=== PATIENT | female | born 1975 | race Caucasian/White ===

== ENCOUNTER → 2020-01-22 13:20 | Outpatient (CLI) | payer OTHER, SELFPAY ==
--- NOTE | ~2020-01-22 | MM_ITS ---
EXAMINATION: MM screening [facility] BI w shandra HISTORY: Screening mammogram TECHNIQUE: Craniocaudal and mediolateral oblique 3-D tomosynthesis images were obtained and synthetic 2-D images were generated. CAD analysis was submitted and interpreted. COMPARISON: 12/24/2018, 11/27/2017, 06/29/2015 BREAST PARENCHYMAL COMPOSITION: The breasts are almost entirely fatty. FINDINGS: There is no evidence of suspicious mass, calcification, or architectural distortion to sugg est malignancy in either breast. There has been no suspicious interval change. IMPRESSION: 1. No mammographic evidence of malignancy. 2. Recommend routine screening mammography in one year. BI-RADS Category 1: Negative Reviewed, dictated and finalized at location A.
== END ==
PROVIDERS: Visit Provider Obstetrics & Gynecology
DX: Z12.31 Encounter for screening mammogram for malignant neoplasm of breast (principal)
CPT/HCPCS: 77063; 77067

== ENCOUNTER 2020-12-03 13:33 | Outpatient (CLI) | payer OTHER, SELFPAY ==
[2020-12-03 15:07] LABS: HIV 1/2 Ab P24 Ag Result Negative (Negative)
[2020-12-03 16:40] LABS: Hepatitis B Surface Antigen Negative (Negative)
[2020-12-03 16:45] LABS: Hepatitis B Core IgM Result Negative (Negative)
[2020-12-03 16:58] LABS: Hepatitis C Virus Antibody Negative (Negative)
[2020-12-06 04:20] LABS: Hepatitis Be Antibody Nonreactive
[2020-12-06 08:49] LABS: Rapid Plasma Reagin Non-Reactive (NonReactive)
== END 2020-12-03 13:34 | disposition home or self-care (01) ==
PROVIDERS: PCP Family Medicine Sports Medicine; Visit Provider Nurse Practitioner Obstetrics & Gynecology
DX: A64 Unspecified sexually transmitted disease (principal)
CPT/HCPCS: 36415; 86592; 86695; 86696; 86703; 86705; 86707; 86803; 87340; G0432

== ENCOUNTER → 2021-03-16 10:19 | Outpatient (CLI) | payer OTHER, SELFPAY ==
--- NOTE | ~2021-03-16 | MM_ITS ---
EXAMINATION: MM screening [facility] BI w shandra HISTORY: Screening mammogram TECHNIQUE: Craniocaudal and mediolateral oblique 3-D tomosynthesis images were obtained and synthetic 2-D images were generated. CAD analysis was submitted and interpreted. COMPARISON: 01/22/2020, 12/24/2018, 11/27/2017 bilateral digital screening mammogram examinations BREAST PARENCHYMAL COMPOSITION: The breasts are almost entirely fatty. FINDINGS: There is no evidence of suspicious mass, calcification, or architectural distortion to sugg est malignancy in either breast. There has been no suspicious interval change. IMPRESSION: 1. No mammographic evidence of malignancy. 2. Recommend routine screening mammography in one year. BI-RADS Category 1: Negative Reviewed, dictated and finalized at location A.
== END ==
PROVIDERS: Visit Provider Nurse Practitioner Obstetrics & Gynecology
DX: Z12.31 Encounter for screening mammogram for malignant neoplasm of breast (principal)
CPT/HCPCS: 77063; 77067

== ENCOUNTER 2021-07-06 08:01 | Outpatient (CLI) | payer OTHER, SELFPAY ==
--- NOTE | 2021-07-06 08:00 | ECG_ITS ---
Measurements Intervals [place] Rate: 69 P: 26 LA: 178 QRS: -1 QRSD: 81 T: 2 QT: 391 QTc: 421 Interpretive Statements SINUS RHYTHM LOW QRS VOLTAGE IN PRECORDIAL LEADS CANNOT RULE OUT SEPTAL INFARCT, AGE INDETERMINATE BORDERLINE T WAVE ABNORMALITY- INFERIOR LEADS BASELINE ARTIFACT- I, II, III, AVR, AVL, AVF ABNORMAL ECG Electronically Signed On 07-06-2021 8:28:29 CDT by Jeremiah Mccormick D.O.
[2021-07-06 08:37] LABS: Anion Gap 11 mmol/L (8-16); Blood Urea Nitrogen 15 mg/dL (7-17); Calcium 8.9 mg/dL (8.4-10.2); Carbon Dioxide 24 mmol/L (22-30); Chloride 107 mmol/L (98-107); Estimated Glomerular Filt Rate > 60; Glucose 146 mg/dL (65-110); Potassium 3.9 mmol/L (3.4-5.0); Sodium 142 mmol/L (137-145)
== END 2021-07-06 08:02 | disposition home or self-care (01) ==
LOC: ANHSURGERY 08:06
PROVIDERS: Anesthesiology; PCP Family Medicine Sports Medicine; Visit Provider Obstetrics & Gynecology
DX: N92.0 Excessive and frequent menstruation with regular cycle (principal); I10 Essential (primary) hypertension; Z79.899 Other long term (current) drug therapy; Z01.818 Encounter for other preprocedural examination; R94.31 Abnormal electrocardiogram [ECG] [EKG]
CPT/HCPCS: 36415; 80048; 86850; 86900; 86901; 93005

== ENCOUNTER 2021-09-09 14:48 | Outpatient (CLI) | payer OTHER, SELFPAY ==
[2021-09-09 15:41] LABS: Anion Gap 7 mmol/L (8-16); Blood Urea Nitrogen 20 mg/dL (7-17); Calcium 9.2 mg/dL (8.4-10.2); Carbon Dioxide 29 mmol/L (22-30); Chloride 102 mmol/L (98-107); Estimated Glomerular Filt Rate > 60; Glucose 88 mg/dL (65-110); Potassium 4.5 mmol/L (3.4-5.0); Sodium 138 mmol/L (137-145)
== END 2021-09-09 14:49 | disposition home or self-care (01) ==
PROVIDERS: Anesthesiology; PCP Family Medicine Sports Medicine; Visit Provider Obstetrics & Gynecology
DX: N92.0 Excessive and frequent menstruation with regular cycle (principal); Z79.899 Other long term (current) drug therapy; Z01.818 Encounter for other preprocedural examination
CPT/HCPCS: 36415; 80048; 86850; 86900; 86901

== ENCOUNTER 2021-09-20 00:05 | Day surgery (SDC) | payer OTHER, SELFPAY ==
[2021-07-01 15:05] VITALS: BMI 43.3
[2021-09-07 11:35] VITALS: BMI 43.3
--- NOTE | 2021-09-07 11:43 | PC.NURSE ---
Report to the Outpatient Waiting Room, entrance under the green pavilion located off [facility], at time 6:00 on date 09/20/21. OR Time: 7:30. - You and your visitor will be asked a series of questions to screen for COVID 19 for your protection. - A mask is required within the hospital. - Only one visitor is allowed at this time. Patient visitors will be guided where to wait when not with patient. Preoperative COVID Testing Requirements: No COVID Test needed if: (proof is required; if not received patient will have Rapid Test prior to entry) - Patient has received COVID Vaccine at least 14 days prior to procedure date or - Patient has positive COVID test result within last 90 days of surgery date. COVID Test needed if above criteria is not met If not COVID vaccinated a COVID test must be conducted within 72 hours of surgery and patient is asked to isolate self from time of testing until procedure. You will go to the [facility] for your COVID testing. The [facility] site is located at the corner of [address] [facility]. You will only be called if COVID results are positive and your surgeon may reschedule your elective surgery date. Patients may have clear liquids (water, carbonated beverages, clear teas, apple juice) until 3 hours prior to surgery with a maximum of 20 ounces. - No food from midnight until time of surgery - Infants may have breast milk until 4 hours before surgery, infant formula 6 hours prior to surgery. - Children will be allowed to drink immediately following surgery. If applicable, please bring a bottle or sippy cup to assist with drinking. Juice, water, soda, and popsicles are readily available. For infants on formula, please bring formula the day of surgery. Pacifiers are allowed. Take the following medications with a SIP of water the morning of surgery: BYSTOLIC, SERTRALINE Medications to discontinue per physician: VITAMINS/SUPPLEMENTS Date to take last dose: 09/16/21 Please no make-up, nail urdu, hairspray, perfume, deodorant, or body powder the day of surgery. No jewelry (including any body piercings) or valuables the day of surgery, leave them at home. Please take a shower or bath the night before, or the morning of, surgery with an antibacterial soap. Wear comfortable, loose fitting clothing. Children are encouraged to wear pajamas. - Jewelry must be removed prior to entering the operating room. Rings and piercings that are not removed may be cut off. - The hospital will not accept responsibility for valuables. - Please leave all valuables, including medications, at home the day of surgery. If you are going home after surgery, a licensed driver sales must drive you home. - NO public transportation without another adult. - We recommend that an adult stay with you for 24 hours following discharge. - We also recommend that you do not drive, make important decision, drink alcoholic beverages, or take any drugs that were not prescribed by your health care provider for at least 24 hours after your discharge time. For Pediatric surgeries, we recommend two adults accompany the child home (only one inside the building at this time). Follow any additional instructions given to you from your surgeon. Telephone instructions given to JIMMY ORTA and asked if any additional questions and then verbalized understanding. Patient advised to call surgeon office or pre surgery nurse liaison [phone] if any additional questions.
[2021-09-20] VITALS (9 sets, daily range): BP systolic 96–129; BP diastolic 49–77; PULSE 62–78; RESP 12–18; TEMP 36.6–37.2; O2SAT 92–100; BMI 44.3
[2021-09-20] MEDS: KETOROLAC 15 MG/ML VIAL (*BKC) IV PUSH (06:38)
[2021-09-20] MEDS: LACTATED RINGERS 1,000 ML 30 ML IV CONT ×2 (06:38→09:44)
[2021-09-20] MEDS: ACETAMINOPHEN 500 MG TABLET 1000 MG PO (06:39)
--- NOTE | 2021-09-20 07:06 | WPDANESEPPF ---
Anes - Initial Pre Proc Eval Procedure: Operation Date: 09/20/21 07:30 Proposed Procedures p Total Laparoscopic Hysterectomy With Bilateral Laparoscopic Salpingectomy - Richardson Mcclendon MD Date/Time: 09/20/21 07:06 Surgeon: Richardson Mcclendon MD Pre Op Diagnosis: menorrhagia Patient Data Age: 46 Gender: F Height: 1.65 m Weight: 120.8 kg Last Vital Signs Temp 97.9 F 09/20/21 06:13 Pulse 65 09/20/21 06:13 Resp 18 09/20/21 06:13 BP 115/49 L 09/20/21 06:13 Pulse Ox 99 09/20/21 06:13 Allergies Allergy/AdvReac Type Severity Reaction Status Date / Time No Known Allergies Allergy Mild Verified 09/20/21 06:04 Home Medications Medication Instructions Recorded Confirmed Type diphenhydramine-acetaminophen 2 tablet PO HS 07/01/21 09/20/21 History [Tylenol PM Extra Strength] fenofibrate nanocrystallized 145 mg PO QAM 07/01/21 09/20/21 History furosemide 40 mg PO QAM 07/01/21 09/20/21 History multivitamin [Daily Multivitamin] 1 tablet PO DAILY 07/01/21 09/20/21 History nebivolol [Bystolic] 10 mg PO QAM 07/01/21 09/20/21 History potassium 99 mg PO QAM 07/01/21 09/20/21 History sertraline 100 mg PO QAM 07/01/21 09/20/21 History cholecalciferol (vitamin D3) 25 mcg PO DAILY 09/07/21 09/20/21 History [Vitamin D3] docusate sodium [Colace] 100 mg PO BID 09/07/21 09/07/21 History Patient hx anesthesia problems: none Family hx anesthesia problems: none Results Review: All pre-operative results and documents have been reviewed as part of the pre-operative evaluation. [facility] Past Medical History Medical History (Updated 09/20/21 @ 07:07 by Bruno Springer MD) Depression Hyperlipidemia Hypertension Social History Social History Smoking status: Never smoker Alcohol intake: current Alcohol use details: 2/MONTH Substance use: never Substance use type: does not use Living arrangements: with family Spiritual care concerns: No Anes - Eval Final PreProcedure Day of Procedure 09/20/21 07:06 Patient weight: morbidly obese Heart: regular rate and rhythm Lungs: clear to auscultation Airway: Mallampati scale class III Neurological: alert and oriented Last oral intake: >/= 8 hours ASA classification: III Emergent: no Anesthetic plan: proceed Anesthesia type and monitoring: general ETT and standard monitoring Results Review: All pre-operative results and documents have been reviewed as part of the pre-operative evaluation. Informed Consent: The patient's anesthetic plan and its attendant risks and benefits were discussed with the patient/family/POA. Questions were solicited and answers provided to the satisfaction of the patient/family/POA.
--- NOTE | 2021-09-20 07:16 | WPDHPUPDATE1 ---
History and Physical Update Update Date/Time: 09/20/21 07:16 History and Physical has been reviewed, including an updated exam of the patient. There are NO changes in the patient's condition. Risks, benefits, and alternatives have been discussed and questions answered. Patient agrees to proceed with procedure.
--- NOTE | 2021-09-20 07:23 | SUR.PREOP ---
0711; DR BOLIVAR HERE. NOTIFIED OF SM DIME SIZE OPEN WOUND TO LLQ UNDER PANNUS
[2021-09-20] MEDS: ceFAZolin 3 GM/D5W 100 ML 100 ML IVPB (07:30)
--- NOTE | 2021-09-20 09:54 | W.PM.PROC2 ---
Procedure Note - Detailed Date of Procedure 09/20/21 Pre-op Diagnosis menorrhagia Post-op Diagnosis same Procedure Performed Total laparoscopic hysterectomy and bilateral salpingectomy. Surgeon Richardson Mcclendon MD Anesthesia general Indications Severe menometrorrhagia, possible cervical mass Findings Moderate sized uterus, normal appearing ovaries and normal-appearing tubes. Description of Procedure This patient was taken to the operating room. She was prepped and draped in the dorsal lithotomy position after induction of general anesthesia. The uterine manipulator and Simon cup were placed. This was done with a speculum and tenaculum. The speculum was placed. The cervix was grasped with a tenaculum. The stay sutures were placed at 3 and 9:00 a.m.. The stay sutures of 0 Vicryl were brought through the appropriately sized Simon cup. The tip of the ZAIRA manipulator was placed in the intrauterine cavity. The cup was slid into place around the cervix and into the fornices. It was locked into place. The sutures were then wrapped around the handle and tied under tension. A 5 mm skin incision was made in the left upper quadrant the abdomen. A 5 mm trocar was inserted into the intrauterine cavity under direct visualization of the scope. Pneumoperitoneum was achieved. A left lower quadrant 11 mm incision was made with scalpel. An 11 mm trocar was inserted into the anterior abdominal cavity under direct visualization the scope. A 5 mm infraumbilical incision was made with a scalpel and a 5 mm trocar was inserted the intra-abdominal cavity under direct visualization of the scope. Bilateral ureteral lysis was performed. This was done from the pelvic brim down to the uterine artery. This was done with careful dissection using sharp and blunt dissection. The fallopian tubes were removed bilaterally. The mesosalpinx around the fallopian tubes were cauterized transected with LigaSure cautery. This was done in a bilateral fashion from the ovary to the uterine cornua. The fallopian tube was transected at the uterine cornu and amputated. The tube was taken out the left lower quadrant trocar site. In a stepwise fashion along the lateral aspects of the uterus the round ligament and broad ligaments were cauterized transected down to the level of the uterine arteries. A bladder flap was created in the bladder was moved distally to the end of the cervix and over the Simon cup. The bilateral uterine arteries were cauterized and transected. Colpotomy was then performed. In a circumferential fashion the vagina was transected using unipolar cautery. The incision was made down on the Simon cup. The uterus and cervix were taken out through the vagina. A pneumo occluder was placed in the vagina. The vaginal cuff was closed with a 0 V lock suture in a running fashion. The pelvis was irrigated with copious amounts antibiotic irrigation. The ureters were again examined and found to be intact and flowing freely under the uterine arteries into the bladder. The bladder was intact. It was examined directly. The vagina was irrigated with Betadine solution after removal of the Pneumo occluder. The patient was taken to recovery room. She was stable condition. Sponge lap and needle counts were correct x2. Estimated Blood Loss 150 Drains Yes Packing No Pathology yes Complications No immediate complications Condition stable Disposition floor
[2021-09-20] MEDS: HYDROmorphone HCL INJ (*CRX) 1 MG/ML SYR 0.25 MG IV PUSH ×4 (10:29→10:49)
--- NOTE | 2021-09-20 10:57 | PC.NURSE ---
This patient, Najma Lizarraga, was received from PACU at 1057 per hospital bed. Patient/family oriented to unit policies and routines
[2021-09-20] MEDS: DEXTROSE 5%/0.45% SOD CHL 1,000 ML 125 ML IV CONT (13:49)
[2021-09-20] MEDS: KETOROLAC 30 MG/ML VIAL (*BKC) IV PUSH (13:50)
[2021-09-20] MEDS: DOCUSATE SODIUM 100 MG CAPSULE PO (17:05)
[2021-09-20] MEDS: HYDROcodone/acetaminophen (*CRX) 5-325 MG TABLET 1 TAB PO (17:06)
[2021-09-20] MEDS: ONDANSETRON INJ 4 MG/2 ML VIAL IV PUSH (18:00)
[2021-09-20] MEDS: IBUPROFEN 600 MG TABLET PO (19:36)
[2021-09-20] MEDS: HYDROcodone/acetaminophen (*CRX) 10-325 MG TABLET 1 TAB PO (19:37)
[2021-09-20] MEDS: diphenhydrAMINE HCl CAP 25 MG CAPSULE 50 MG PO (19:38)
[2021-09-21] VITALS: BP 101/54; PULSE 76; RESP 18; TEMP 36.9
[2021-09-21 04:00] VITALS: BP 110/55; PULSE 73; RESP 18; TEMP 36.6
[2021-09-21] MEDS: HYDROcodone/acetaminophen (*CRX) 10-325 MG TABLET 1 TAB PO (04:58)
[2021-09-21] MEDS: IBUPROFEN 600 MG TABLET PO ×2 (05:00→10:30)
--- NOTE | 2021-09-21 07:34 | PM.GYNPNOP ---
SECURITY THREAT ANALYST - A/P Postoperative Procedures: Procedures Operation Date: 09/20/21 07:30 Actual Procedure Side Surgeon p Total Laparoscopic Hysterectomy With Bilateral Laparoscopic Salpingectomy Bilateral Richardson Mcclendon MD Postoperative day: 1 Postoperative status: doing well Postoperative plan: see orders Time Spent With Patient Time: Total time spent is greater than 50% in coordination of care (as documented) at patient's floor/unit and/or counseling patient: Time with patient: less than 15 minutes SECURITY THREAT ANALYST- PN:Subj Post-Op Subjective Date/time seen: 09/21/21 07:34 Subjective: patient reports feeling better, patient has no complaints and pain is well controlled Exam Const: General: healthy appearing, comfortable and no acute distress Resp: Auscultation: clear to auscultation bilaterally, no rales, no rhonchi and no wheezes Cardio: Rate: regular rate Heart sounds: no click, no murmurs and no rubs GI: Inspection: non-distended Auscultation: normal bowel sounds Extrem: General: normal to inspection, no pedal edema and no calf tenderness SECURITY THREAT ANALYST - PN: Obj Data Vital Signs Vital Signs: Vital Signs - 24 hr 09/20/21 09:50 09/20/21 10:05 09/20/21 10:20 Temperature 99 F Pulse Rate 66 70 62 Respiratory Rate 12 15 12 Blood Pressure 119/52 L 102/77 126/68 Pulse Oximetry 99 100 93 09/20/21 10:35 09/20/21 10:50 09/20/21 11:05 Temperature 98.7 F Pulse Rate 70 68 66 Respiratory Rate 18 13 16 Blood Pressure 129/63 123/65 116/50 L Pulse Oximetry 93 92 96 09/20/21 16:00 09/20/21 19:00 09/21/21 00:00 Temperature 98.5 F 98.4 F 98.4 F Pulse Rate 68 78 76 Respiratory Rate 18 18 18 Blood Pressure 96/50 L 96/50 L 101/54 L Pulse Oximetry 09/21/21 04:00 Temperature 97.8 F Pulse Rate 73 Respiratory Rate 18 Blood Pressure 110/55 L Pulse Oximetry Intake/Output Intake/Output: Intake & Output 09/18/21 09/19/21 09/20/21 09/21/21 23:59 23:59 23:59 23:59 Intake Total 39648 1800 Output Total 625 2350 Balance 49556 -550 Meds/Results Medications: Active Medications Generic Name Dose Route Start Last Admin Trade Name Freq PRN Reason Stop Dose Admin Acetaminophen 1,000 mg 09/20/21 21:00 09/20/21 19:34 Acetaminophen 500 Mg Tablet PO Not Given HS NEHEMIAH Hydrocodone Bitart/Acetaminophen 1 tab 09/20/21 10:54 09/20/21 17:06 Hydrocodone/Acetaminophen (*Crx) 5-325 Mg Tablet PO 1 tab Q3H PRN Administration Pain Rated 5 or Less Hydrocodone Bitart/Acetaminophen 1 tab 09/20/21 10:54 09/21/21 04:58 Hydrocodone/Acetaminophen (*Crx) 10-325 Mg Tablet PO 1 tab Q3H PRN Administration Pain Rated 6 or Greater Diphenhydramine HCl 50 mg 09/20/21 21:00 09/20/21 19:38 Diphenhydramine Hcl Cap 25 Mg Capsule PO 50 mg HS NEHEMIAH Administration Docusate Sodium 100 mg 09/20/21 17:00 09/20/21 17:05 Docusate Sodium 100 Mg Capsule PO 100 mg BID NEHEMIAH Administration Fenofibrate 145 mg 09/21/21 09:00 Fenofibrate Nanocrystallized 145 Mg Tablet PO QAM NEHEMIAH Furosemide 40 mg 09/21/21 09:00 Furosemide 40 Mg Tablet PO QAM NEHEMIAH Ibuprofen 600 mg 09/20/21 10:54 09/21/21 05:00 Ibuprofen 600 Mg Tablet PO 600 mg Q6H PRN Administration Cramping Ketorolac Tromethamine 30 mg 09/20/21 10:54 09/20/21 13:50 Ketorolac 30 Mg/Ml Vial (*Bkc) IV PUSH 09/25/21 10:53 30 mg Q6H PRN Administration Pain Rated 4-6 Nebivolol 10 mg 09/21/21 09:00 Nebivolol Hcl 5 Mg Tablet PO QAM NHEEMIAH Ondansetron HCl 4 mg 09/20/21 10:54 09/20/21 18:00 Ondansetron Inj 4 Mg/2 Ml Vial IV PUSH 4 mg Q6H PRN Administration Nausea And Vomiting Sertraline HCl 100 mg 09/21/21 09:00 Sertraline Hcl 50 Mg Tablet PO QAM NEHEMIAH
[2021-09-21 08:00] VITALS: BP 117/61; PULSE 78; RESP 18; TEMP 36.1; TEMP 36.6
[2021-09-21] MEDS: FUROSEMIDE 40 MG TABLET PO (08:52)
[2021-09-21] MEDS: SERTRALINE HCL 50 MG TABLET 100 MG PO (08:53)
[2021-09-21] MEDS: HYDROcodone/acetaminophen (*CRX) 5-325 MG TABLET 1 TAB PO (08:53)
[2021-09-21] MEDS: FENOFIBRATE NANOCRYSTALLIZED 145 MG TABLET PO (08:53)
[2021-09-21 08:55] VITALS: PULSE 78
[2021-09-21] MEDS: NEBIVOLOL HCL 5 MG TABLET 10 MG PO (08:55)
[2021-09-21] MEDS: DOCUSATE SODIUM 100 MG CAPSULE PO (08:55)
--- NOTE | 2021-09-21 09:20 | PC.NURSE ---
Discharge instructions given to pt. including when to call MD. for follow up visit. Pt. states that she has appt. for Sunday, Sep.26, at 0845. No questions or concerns verbalized. Very pleasant and cooperative.
--- NOTE | 2021-09-21 10:20 | WPDANESPN ---
Anes - Prog Note Post-Op Date/Time: 09/21/21 10:20 Cardiovascular status: normal Respiratory status: normal Airway patency: baseline Mental status: baseline Post-Op hydration status: normal Vital Signs: Last Vital Signs Temp 97.8 F 09/21/21 08:00 Pulse 78 09/21/21 08:55 Resp 18 09/21/21 08:00 BP 117/61 09/21/21 08:00 Pulse Ox 96 09/20/21 11:05 Pain Score (VAS): 0 I/O: Intake & Output 09/20/21 09/21/21 09/21/21 23:59 07:59 15:59 Intake Total 28565 1800 Output Total 500 2350 300 Balance 38473 -550 -300 Post-procedural complaints: nausea (medicated X 1, no recurrance or emesis) Patient Feedback: Patient satisfied with anesthetic care.
== END 2021-09-21 10:35 | disposition home or self-care (01) ==
LOC: ANHSURGERY 05:47 → ANHOB2 11:06
PROVIDERS: PCP Family Medicine Sports Medicine; Visit Provider Obstetrics & Gynecology
PROC: 0UT9FZZ Resection of Uterus, Via Natural or Artificial Opening With Percutaneous Endoscopic Assistance (ICD-10-PCS; CPT 58571; principal; 2021-09-20 07:30)
DX: N92.0 Excessive and frequent menstruation with regular cycle (principal); N80.0 Endometriosis of uterus; D25.0 Submucous leiomyoma of uterus; D25.1 Intramural leiomyoma of uterus; D25.2 Subserosal leiomyoma of uterus; N73.6 Female pelvic peritoneal adhesions (postinfective); I10 Essential (primary) hypertension; E78.5 Hyperlipidemia, unspecified; F32.9 Major depressive disorder, single episode, unspecified; E66.01 Morbid (severe) obesity due to excess calories; Z68.41 Body mass index [BMI] 40.0-44.9, adult
CPT/HCPCS: 58571; 86850; 86900; 86901; 88307; 99199; A9270; J0330; J0690; J1100; J1170; J1885; J2250; J2405; J2704; J2710; J3010; J7030; J7120

== ENCOUNTER 2022-05-05 10:11 | Emergency (ER) | payer OTHER, SELFPAY ==
[2022-05-05 10:23] VITALS: BP 132/72; PULSE 67; RESP 18; TEMP 36.8; O2SAT 99
--- NOTE | 2022-05-05 10:24 | ED.NAVMDI ---
HPI - Nausea/Vomiting/Diarrhea General Chief complaint: Nausea/Vomiting/Diarrhea Stated complaint: Abdominal Pain Time Seen by Provider: 05/05/22 10:24 Source: patient Mode of arrival: ambulatory Limitations: no limitations History of Present Illness HPI Narrative: 47-year-old female presents with complaint of diarrhea, abdominal cramping for the last 36 hours. No nausea vomiting. Denies body aches, chills, fever. No URI symptoms. Reports that she got home from [place] 4 days ago. Took a few doses of Pepto and then switched to Imodium. Is able to keep down fluids. All systems reviewed and negative except as noted above. Related Data Home Medications Medication Instructions Recorded Confirmed diphenhydramine 25 2 tablet PO HS 07/01/21 05/05/22 mg-acetaminophen 500 mg tablet (Tylenol PM Extra Strength) fenofibrate nanocrystallized 145 145 mg PO QAM 07/01/21 05/05/22 mg tablet furosemide 40 mg tablet 40 mg PO QAM 07/01/21 05/05/22 multivitamin 1 tablet PO DAILY 07/01/21 05/05/22 nebivolol 10 mg tablet (Bystolic) 10 mg PO QAM 07/01/21 05/05/22 potassium 99 mg tablet 99 mg PO QA 07/01/21 05/05/22 sertraline 100 mg tablet 100 mg PO QAM 07/01/21 05/05/22 cholecalciferol (vitamin D3) 25 25 mcg PO DAILY 09/07/21 05/05/22 mcg (1,000 unit) chewable tablet (Vitamin D3) docusate sodium 100 mg capsule 100 mg PO BID 09/07/21 05/05/22 (Colace) methylprednisolone 4 mg tablets in ea 05/05/22 a dose pack topiramate 50 mg tablet tablet 05/05/22 Allergies Allergy/AdvReac Type Severity Reaction Status Date / Time No Known Allergies Allergy Mild Verified 05/05/22 10:16 Review of Systems Review of Systems: CONSTITUTIONAL: Denies fever, chills, or sweats. EYES: Denies visual changes, redness, or discharge. ENT: Denies rhinorrhea, congestion, sore throat, or otalgia. CARDIOVASCULAR: Denies chest pain, palpitations, or edema. RESPIRATORY: Denies cough or dyspnea. GASTROINTESTINAL: Denies abdominal pain and diarrhea. Denies nausea, vomiting. GENITOURINARY: Denies dysuria or hematuria. SKIN: Denies rash or itching. MUSCULOSKELETAL: Denies back pain, joint pain, or myalgia. NEUROLOGIC: Denies headache, numbness, or weakness. PSYCHIATRIC: Denies anxiety or depression. All other systems reviewed are negative, except as documented in HPI. [facility] Past Medical History Medical History (Updated 05/05/22 @ 10:33 by Nel Bermudez NP) Depression Hyperlipidemia Hypertension Social History Social History Smoking status: Never smoker Alcohol intake: current Alcohol use details: 2/MONTH Substance use: never Substance use type: does not use Spiritual care concerns: No Comments At time of signature, agree with nursing past medical, surgical, social and family history. There is no relevant family history pertinent to the presenting complaint. Exam Narrative: GENERAL: This is a well-nourished, well-developed patient, in no apparent distress. HEAD: normocephalic, atraumatic. EYES: PERRL. Sclera clear/white. Vision is grossly intact. EARS: External ears normal NOSE: External nose normal NECK: Neck supple, non-tender without lymphadenopathy, masses or thyromegaly. CARDIOVASCULAR: Regular rate and rhythm without murmurs, gallops, or rubs. RESPIRATORY: Clear to auscultation. Breath sounds equal bilaterally. No wheezes, rales, or rhonchi. GASTROINTESTINAL: Abdomen soft, non-tender, nondistended. Bowel sounds are hyperactive active. No hepato-splenomegaly, or palpable masses. No guarding. SKIN: warm, Dry, intact with no suspicious lesions or rash, good texture and turgor. NEURO: awake, alert, and oriented to person, place and time. There were no obvious focal neurologic abnormalities. EXTREMITIES: No joint tenderness, effusion, or edema noted. Course Course Level of Care: Express Care Visit Vital Signs Vital signs: Vital Signs Temperature 36.8 C 05/05/22 10:23 Pulse Rate 67 05/05/22
== END 2022-05-05 10:37 | disposition home or self-care (01) ==
PROVIDERS: Emergency Provider Nurse Practitioner Family; PCP Family Medicine Sports Medicine
DX: A09 Infectious gastroenteritis and colitis, unspecified (principal); E78.5 Hyperlipidemia, unspecified; I10 Essential (primary) hypertension; F32.A Depression, unspecified
CPT/HCPCS: 99213; G0463

== ENCOUNTER → 2022-07-04 13:41 | Outpatient (CLI) | payer OTHER, SELFPAY ==
--- NOTE | ~2022-07-04 | MM_ITS ---
EXAMINATION: MM screening [facility] BI w shandra HISTORY: Screening mammogram TECHNIQUE: Craniocaudal and mediolateral oblique 3-D tomosynthesis images were obtained and synthetic 2-D images were generated. CAD analysis was submitted and interpreted. COMPARISON: 03/16/2021, 01/22/2020, 12/24/2018 bilateral screening mammogram examinations BREAST PARENCHYMAL COMPOSITION: The breasts are almost entirely fatty. FINDINGS: There is no evidence of suspicious mass, calcification, or architectural distortion to sugg est malignancy in either breast. There has been no suspicious interval change. IMPRESSION: 1. No mammographic evidence of malignancy. 2. Recommend routine screening mammography in one year. BI-RADS Category 1: Negative Reviewed, dictated and finalized at location A.
== END ==
PROVIDERS: PCP Family Medicine Sports Medicine; Visit Provider Obstetrics & Gynecology
DX: Z12.31 Encounter for screening mammogram for malignant neoplasm of breast (principal)
CPT/HCPCS: 77063; 77067

== ENCOUNTER → 2023-09-25 13:13 | Outpatient (CLI) | payer OTHER, SELFPAY ==
--- NOTE | ~2023-09-25 | MM_ITS ---
EXAMINATION: MM screening [facility] BI w shandra HISTORY: Screening mammogram TECHNIQUE: Craniocaudal and mediolateral oblique 3-D tomosynthesis images were obtained and synthetic 2-D images were generated. CAD analysis was submitted and interpreted. COMPARISON: 07/04/2022, 03/15/2021, 01/22/2020 BREAST PARENCHYMAL COMPOSITION: There are scattered areas of fibroglandular density. FINDINGS: No suspicious mass, calcification, or architectural distortion are identified in either nancy ast to suggest malignancy. There has been no suspicious interval change. IMPRESSION: 1. No mammographic evidence of malignancy. 2. Recommend routine screening mammography in one year. BI-RADS Category 1: Negative Reviewed, dictated and finalized at location A. [employer]
== END ==
PROVIDERS: PCP Obstetrics & Gynecology; Visit Provider Obstetrics & Gynecology
DX: Z12.31 Encounter for screening mammogram for malignant neoplasm of breast (principal)
CPT/HCPCS: 77063; 77067

== ENCOUNTER 2023-11-17 09:22 | Emergency (ER) | payer OTHER, SELFPAY ==
--- NOTE | 2023-11-17 09:31 | ED.URI ---
HPI - URI/Sore Throat General Chief Complaint: Upper Respiratory Infection Stated Complaint: sore throat, earache Time Seen by Provider: 11/17/23 09:35 Source: patient, RN notes reviewed and old records reviewed Mode of arrival: ambulatory Limitations: no limitations History of Present Illness HPI Narrative: 48-year-old female presents to the [facility] with complaints of a sore throat and right ear pain for 2-3 days. Has tried jley-vyr-rlizdok products Denies fevers. Denies coughing chest abdominal pain. Onset (ago): day(s) (2-3) Related Data Home Medications Medication Instructions Recorded Confirmed furosemide 40 mg tablet 40 mg PO QAM 07/01/21 11/17/23 multivitamin 1 tablet PO DAILY 07/01/21 11/17/23 nebivolol 10 mg tablet (Bystolic) 10 mg PO QAM 07/01/21 11/17/23 cholecalciferol (vitamin D3) 25 25 mcg PO DAILY 09/07/21 11/17/23 mcg (1,000 unit) chewable tablet (Vitamin D3) topiramate 50 mg tablet 50 tablet PO DAILY 05/05/22 11/17/23 hydroxyzine HCl 25 mg tablet 25 mg PO DAILY 11/17/23 11/17/23 semaglutide (weight loss) 2.4 See Rx Instructions .Route .COMPLEX 11/17/23 11/17/23 mg/0.75 mL subcutaneous pen injector (Wegovy) Allergies Allergy/AdvReac Type Severity Reaction Status Date / Time No Known Allergies Allergy Mild Verified 11/17/23 09:31 Review of Systems Review of Systems: All systems reviewed & are unremarkable except as noted in HPI and below Constitutional: Constitutional: Reports no additional constitutional complaints Eyes: Eyes: Reports no additional eye complaints ENT: Reports as per HPI, Reports otalgia (Right) and Reports sore throat Cardiovascular: Cardiovascular: Reports no additional cardiovascular complaints, Denies chest pain and Denies dyspnea Respiratory: Respiratory: Reports no additional respiratory complaints, Denies chest congestion, Denies cough and Denies dyspnea Gastrointestinal: Gastrointestinal: Reports no additional gastrointestinal complaints, Denies abdominal pain, Denies nausea and Denies vomiting Musculoskeletal: Musculoskeletal: Reports no additional musculoskeletal complaints Integumentary/Breasts: Skin/Breast: Reports system reviewed and no additional complaints, except as docu Neurologic: Reports system reviewed and no additional complaints, except as documented Psychiatric: Psychiatric: Reports no additional psychiatric complaints Allergic/Immunologic: Allergic/Immunologic: Reports no additional allergic/immunologic complaints PMFSH Past Medical History Medical History (Updated 11/17/23 @ 09:49 by Antonella Tee APRN) Depression Hyperlipidemia Hypertension Surgical History Surgical History (Updated 11/17/23 @ 09:41 by Antonella Tee APRN) History of carpal tunnel surgery Social History Social History Smoking status: Never smoker Alcohol intake: current Alcohol use details: 2/MONTH Substance use: never Substance use type: does not use Living arrangements: with family Spiritual care concerns: No Comments At the time of my signature, I reviewed and agree with the nursing past medical, surgical, social, and family history. There is no relevant family history pertinent to the patient complaint. Exam Const: General: cooperative, healthy appearing, comfortable, no acute distress, well developed, alert and well nourished Nutritional Appearance: well nourished and obese Orientation/consciousness: patient oriented x3 Limitations: no limitations HENMT: Head: normal to inspection Ears: hearing grossly normal bilaterally, external ears normal, TM's normal bilaterally, EAC's normal, mastoids normal and no periauricular adenopathy Face/Nose/Sinus: Normal external nose present, Normal nares present, Normal nasal mucous membranes and turbinates present, normal facial exam and face symmetric Face and sinus: normal facial exam and face symmetric Mouth: Yes Normal oral and palatal mucosa present, Yes lip normal and Yes moist muc
[2023-11-17 09:34] VITALS: BP 127/72; PULSE 82; RESP 16; TEMP 37.5; O2SAT 99
[2023-11-17 09:35] VITALS: BP 127/72; PULSE 82; RESP 16; TEMP 37.5; O2SAT 99
== END 2023-11-17 09:54 | disposition home or self-care (01) ==
PROVIDERS: Emergency Provider Nurse Practitioner
DX: J02.0 Streptococcal pharyngitis (principal); Z20.822 Contact with and (suspected) exposure to COVID-19; E78.5 Hyperlipidemia, unspecified; I10 Essential (primary) hypertension
CPT/HCPCS: 87426; 87804; 87880; 99213; G0463

== ENCOUNTER 2024-11-25 13:52 | Outpatient (CLI) | payer OTHER, SELFPAY ==
--- NOTE | ~2024-11-25 | MM_ITS ---
EXAMINATION: MM screening pipo BI w shandra HISTORY: Screening TECHNIQUE: Craniocaudal and mediolateral oblique 3-D tomosynthesis images were obtained and synthetic 2-D images were generated. CAD analysis was submitted and interpreted. COMPARISON: Comparison to multiple prior studies sequentially, with oldest reviewed study dated 03/2018. BREAST PARENCHYMAL COMPOSITION: Not dense: There are scattered areas of fibroglandular density. FINDINGS: There is no evidence of suspicious mass, calcification, or architectural distortion to sugg est malignancy in either breast. There has been no suspicious interval change. IMPRESSION: 1. No mammographic evidence of malignancy. 2. Recommend routine screening mammography in one year. BI-RADS Category 1: Negative Reviewed, dictated and finalized at location B. ICATIONS COORDINATOR
== END 2024-11-25 13:53 | disposition home or self-care (01) ==
LOC: MICIMG 13:53
PROVIDERS: PCP Obstetrics & Gynecology; Visit Provider Obstetrics & Gynecology
DX: Z12.31 Encounter for screening mammogram for malignant neoplasm of breast (principal)
CPT/HCPCS: 77063; 77067

== ENCOUNTER 2025-02-07 11:58 | Emergency (ER) | payer OTHER, SELFPAY ==
--- NOTE | ~2025-02-07 | CT_ITS ---
EXAMINATION: CT abdomen pelvis w con DATE: 02/07/2025 13:23 INDICATION: Right lower abdominal pain, nausea and vomiting TECHNIQUE: Computed tomography (CT) of the abdomen and pelvis was performed with 100 mL Omnipaque-350 intravenous contrast. Automated exposure control and iterative reconstruction technique were employe d. The dose-length product was 1249.20 mGy-cm. COMPARISON: None FINDINGS: Lung bases are clear. Heart size normal. No pericardial or pleural effusion. Small sliding-type hiata l hernia. Calcified gallstone within the otherwise normal nondilated gallbladder. Rim calcified cyst versus heterotopic ossification along the posterior capsule of the liver. Spleen, pancreas, bilateral adrenal glands and kidneys are normal. Bladder is normal. The uterus is not identified and has likel y been surgically resected. 4.0 cm left ovarian cyst. Right ovary is unremarkable. Bowels including t he appendix are normal. Rim calcified heterotopic ossicle in the pelvis. No free intraperitoneal gas or fluid. No pathologically enlarged abdominal or pelvic lymphadenopathy. Lumbar dextrocurvature with mild spondylosis. IMPRESSION: 1. Small sliding-type hiatal hernia. 2. Cholelithiasis. 2. 4.0 cm left ovarian cyst. Reviewed, dictated and finalized at location A.
--- OUTSIDE RECORDS SUMMARY | 2025-02-07 12:00 | XMS_ITS ---
Author Organization Unknown Medications Medication Instructions Effective Dates (start - stop) Status 0.75 ML semaglutide 3.2 MG/M L Auto-Injector [NetVisiongovy] - Completed - - Compl eted - - Compl eted phentermine hydrochloride 37 .5 MG Oral Capsule - Completed 0.75 ML semaglutide 3.2 MG/M L Auto-Injector [PermissionTV] - Completed - - Compl eted loteprednol etabonate 5 MG/M L Ophthalmic Suspension - Completed - - Compl eted atorvastatin 20 MG Oral Tablet 2023-07-02 T00:00:00Z - Completed topiramate 50 MG Oral Tablet [id number] 0:00:00Z - Completed dexamethasone 0.001 MG/MG / neomycin 0.0035 MG/MG / polymyxin B 10 UNT/MG Ophthalmic Ointment - Compl eted fluconazole 150 MG Oral Tablet 2023-11-25 T00:00:00Z - Completed phentermine hydrochloride 37 .5 MG Oral Capsule - Completed fluconazole 150 MG Oral Tablet 2023-11-21 T00:00:00Z - Completed atorvastatin 20 MG Oral Tablet 2023-06-10 T00:00:00Z - Completed sertraline 100 MG Oral Tablet 2024-01-08 00:00:00Z - Completed - - Compl eted - - Compl eted 0.75 ML semaglutide 3.2 MG/M L Auto-Injector [OneFoldy] - Completed amoxicillin 875 MG / clavula tristan 125 MG Oral Tablet - Completed 0.75 ML semaglutide 3.2 MG/M L Auto-Injector [OneFoldy] - Completed sertraline 100 MG Oral Tablet 2023-07-02 00:00:00Z - Completed phentermine hydrochloride 37 .5 MG Oral Capsule - Completed phentermine hydrochloride 37 .5 MG Oral Capsule - Completed - - Compl eted - - Compl eted topiramate 50 MG Oral Tablet [id number] 0:00:00Z - Completed 0.75 ML semaglutide 3.2 MG/M L Auto-Injector [PermissionTV] - Completed topiramate 50 MG Oral Tablet [id number] 0:00:00Z - Completed sertraline 100 MG Oral Tablet 2024-04-08 00:00:00Z - Completed - - Compl eted - - Compl eted hydroxyzine hydrochloride 25 MG Oral Tablet - Completed - - Compl eted - - Compl eted sertraline 100 MG Oral Tablet 2023-10-08 00:00:00Z - Completed atorvastatin 20 MG Oral Tablet 2023-10-08 T00:00:00Z - Completed phentermine hydrochloride 30 MG Oral Capsule - Completed hydroxyzine hydrochloride 25 MG Oral Tablet - Completed hydroxyzine hydrochloride 25 MG Oral Tablet - Completed hydroxyzine hydrochloride 25 MG Oral Tablet - Completed phentermine hydrochloride 37 .5 MG Oral Capsule - Completed 0.75 ML semaglutide 3.2 MG/M L Auto-Injector [PermissionTV] - Completed phentermine hydrochloride 37 .5 MG Oral Capsule - Completed 0.75 ML semaglutide 3.2 MG/M L Auto-Injector [PermissionTV] - Completed amoxicillin 500 MG Oral Capsule 2023-10-23 7T00:00:00Z - Completed amoxicillin 875 MG / clavula tristan 125 MG Oral Tablet - Completed hydroxyzine hydrochloride 25 MG Oral Tablet - Completed 0.75 ML semaglutide 3.2 MG/M L Auto-Injector [PermissionTV] - Completed 0.75 ML semaglutide 3.2 MG/M L Auto-Injector [PermissionTV] - Completed 0.75 ML semaglutide 3.2 MG/M L Auto-Injector [PermissionTV] - Completed topiramate 50 MG Oral Tablet [id number] 0:00:00Z - Completed atorvastatin 20 MG Oral Tablet 2024-01-16 T00:00:00Z - Completed Patient Care team information Name Category Status Period Participants - - Proposed period not known -
--- OUTSIDE RECORDS SUMMARY | 2025-02-07 12:00 | XMS_ITS | Patient Health Record ---
Author Organization [facility] Address [address] [facility] [address] [place] [address] Care Team Providers Care Stretch Press Operator Name Role Phone Simón Jorgensen MD Primary Care Provider UnavailRobin Kuhn Unavailable [phone] Allergies No Known Allergies Reason For Referral No Information Medications Medication SIG (Take, Route, Frequency, Duration) Notes Start Date End Date Status Furosemide Active Atorvastatin Calcium Active Phentermine HCl Acti ve Nebivolol HCl Active Topiramate Active Sertraline HCl Activ e OTC/Vitamins Potassium, Tylenol PM Active Dicyclomine HCl 20 MG as directed Orally Once daily Active Social History Tobacco Use: Social History Observation Description Date Details (start date - stop date) Never Smoker NA - NA Tobacco Use/Smoking Question Answer Notes Are you a nonsmoker Plan Of Treatment Pending Test Test Name Order Date Colonoscopy 08/07/2022 Insurance Providers Payer Name Payer Address Payer Phone Subscriber Number Group Number Insured Name Patient Relationship to Insured Coverage Start Date Coverage End Date k [facility] [employer] [address] [place] [address] [id number] Najma Lizarraga Self - patient is the insured Medical (General) History Medical History History ICD Code Hypertension Sleep Apnea Surgical History Surgery Date(Month/Year) C Section 2005 Carpal Tunnel Surgery
--- OUTSIDE RECORDS SUMMARY | 2025-02-07 12:00 | XMS_ITS | Data Portability ---
Author Organization [facility], Main Office Address [address] [place] [id number] Care Team Providers Care Cytogenetic Technologist Name Role Phone RICK PONCE Primary Care Provider [phone] Assessment No assessment recorded. Plan of Treatment Reminders Order Date Submit Date Provider Last Modified By Organization Details Last Modified Time Details Appointments None record ed. Lab None record ed. Referral None record ed. Procedures None record ed. Surgeries None record ed. Imaging None record ed. Medication Orders None record ed. Patient TargetsNo targets recorded. Patient Instructions Encounter Date Encounter Id Patient Instructions Last Modified By Organization Details Last Modified Time 04/03/2018 [id number] She will follow up with me only if and when she feels her symptoms warrant. On today's visit I spent a total of {{20# 30 35 40 45 50 55 60}} minutes tvme-py-kpyy with the patient and over 50% of this time was spent discussing treatment options, risks/benefits of each option and alternatives. [email or web address] Not available 04/07/2018 14:04:21 Reason for Referral None Reported. 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 Pardo in a consult 09/07/17: Saw Dr. Linares or Shayan in a consult Vera Cleveland MD [address] [facility] [address], [place], [address], [facility] 8 17:12:03 Pile easily reducible 201950156 Active 201507/28/16: No Tx - fissure [place] [address] [place] [address],[address], [address], [facility] [place] 8 17:08:38 Thrombosed external hemorrhoid s 87311613 Active 2017 [place] [address] [place] [address],[address], [address], [facility] [place] 8 14:00:06 Constipati on 09093838 Active 2017 [place] [address] [place] [address],[address], [address], [facility] [place] 8 14:03:03 Problem Notes None recorded. Procedures Surgical History Date Name Laterality Status Provider Name and Address Organization Details Recorded Time 8 Date of Last Mammogram completed [facility] 04/03/2018 12:43:35 8 Date of Last Pap Sm[facility] 04/03/2018 12:43:37 Imaging Results None recorded. Procedure Notes None recorded. Medical Equipment None Reported. Allergies No known drug allergies Medications Name Sig Start Date Stop Date Status Note LastModified by Organization Details LastModified Time clindamycin HCl 300 mg capsule 04/03 completed Not Available Not Available Not Available fluconazole 150 mg tablet 04/03 completed Not Available Not Available Not Available sulfamethoxazole 800 mg-trimethoprim 160 mg tablet 04/03 completed Not Available Not Available Not Available amoxicillin 875 mg tablet 04/03 completed Not Available Not Available Not Available imiquimod 5 % topical cream packet 04/03 completed Not Available Not Available Not Available furosemide 20 mg tablet 04/03 completed Not Available Not Available Not Available ergocalciferol (vitamin D2) 1,250 mcg (50,000 unit) capsule 04/03 completed Not Available Not Available Not Available methylprednisolo ne 4 mg tablets in a dose pack 04/03 completed Not Available Not Available Not Available Stool Softener active Not Available No t Available Not Available Vitals Date Recorded Body weight Body mass index (BMI) Body height Heart rate Respiratory rate Body temperature Systolic blood pressure Diastolic blood pressure Provider Name and Address Organization Details Last Updated DateTime 8 409371. 09 g 42.9 kg/m2 162.56 cm 68 /min 12 /min 98.4 [degF] 102 mm[Hg] 74 mm[Hg] Liza Walker [facility] 8 12:56:15 Social History Question Answer Notes LastModified by Organizat ion Details LastModified Time Tobacco Smoking Status Never Smoker Liza cid [facility] 04/03/2018 12:43:15 Alcohol Use No Information n ot available 04/03/2018 Caffeine Use No Information not available 04/03/2018 Illicit Drug Use No Information not available 04/03/2018 What Was The Date Of Your Most Recent Tobacco Screening? 04/03/2018 Information n ot available 05/15/2019 Sex: Unknown Functional Status None recorded. Mental Status None recorded. Family History Relationship Description Onset Age of this Age Resolved Age Notes LastModified by Organization Details LastModified Time Paternal Grandmother Diabetes mellitus Not available 2017 12:43:09 Medical History Condition Response Coronary Artery Disease N Other N Atrial Fibrillation N Kidney Stones N Hyperthyroidism N Hernia N Glaucoma N Depression Y COPD N Hypothyroidism N Accidental Bowel Leakage N Headaches/Migraines Y Deep Vein Thrombosis N Cardiac Dysrhythmia N Anxiety Disorder N MRSA/VRE Exposure N Diverticulosis N Cancer N Stroke N Head Trauma N Genital Warts N Crohn's Disease N Liver Disease/Hepatitis N HIV/AIDS N High Cholesterol N Irritable Bowel Syndrome N Kidney Disease N Autoimmune Disease N Anemia N Celiac Disease N Arthritis/Gout N Anal/Rectal Trauma/Injury N Diabetes N Cataracts N Bleeding Disorder N Seizures/Epilepsy N Diverticulitis N Asthma N Reflux/GERD N Ulcerative Colitis N Sleep Apnea N Aneurysm N Heart Disease N Pulmonary Embolism N Hypertension N Colon/Rectal Polyps N Gynecological History Statement/Question Response Number of Pregnancies? 1 Date of Last Mammogram 01/20/2018 Number of Vaginal Deliveries? 0 Number of C-Sections? 1 Could You Be or Are You Currently Pregna nt? N Date of Last Pap Smear 01/20/2018 Obstetrics History GPAL:G 0 P 0 0 0 0 Past Encounters Encounter ID Performer Location Encounter Start Date Encounter Closed Date Diagnosis/Indication Diagnosis SNOMED-CT Code Diagnosis ICD10 Code Diagnosis Note [id number] Vera Cleveland MD Main Office [address] [place] [address] 04/03/2018 12:36:48 04/03/2018 13:37:37 Thrombosed external hemorrhoids 07960466 K64.5 I reviewed hemorrhoid s in general with her and the treatment options available. She does not need a lancing or excision. This thrombosed is resolving on its own as to be expected. Given her last of baseling symptoms and I looked at her internal hemorrhoid s about 2 years ago and they were very small, I do not think we need to do any non-surgic al treatment like infrared coagulatio n. She will follow up if this area does not completely resolve or if she develops more persistent baseline symptoms. Constipation 26688696 K5 9.00 I encouraged her to maintain soft daily BM's with a high fiber diet, drinking plenty of water and taking a fiber supplement on a regular basis. Health Concerns Section Related Observation LastModified by Organization Detai ls LastModified Time None Recorded Concern Status LastModified by Organization Details LastModified Time None Recorded Advance Directives Directive None Recorded Payers Encounter Date Sequence Insurance Name Policy Number Policy Lainez Covered Member ID Lainez Member ID Guarantor Name 04/03/2018 1 [employer] - DOS PRIOR TO 21 - [facility] [employer] Najma Lizarraga [id number] Najma Lizarraga Notes Date Note Type Note Provider Name and Address Organization Details Recorded Time 04/03/2018 text/html See previous visits and consult note from Dr. Pardo. She states she never did have any surgery with Dr. Pardo (she just did not feel comfortable going right to surgery and then he left practice). She continued to have some symptoms from her fissure so saw Dr. Anibal Downey and had a Botox injection in September of 2017. She states her fissure has been doing great since then and she has had absolutely no problem with it. She comes in today because about 1 week ago she developed sudden external pain and swelling. She used some OTC medications on it and she does feel a lot better (she has only mild discomfort after BM's but no discomfort during the day) but the swelling is still present. She is going to [place] in about 3 weeks and wants to make sure she won't have any problems while I'm down there . Prior to this episode she had no external discomfort, internal pressure, sense of being blocked or sense of incomplete emptying. She has none of those symptoms now. She has seen no bleeding. She does admit the swelling is a lot small and softer. Her BM's have been doing well with her diet and she is taking fiber fairly consistently. Vera Cleveland MD [address] [facility],[address], [place], [address], [facility] 04/07/2018 14:04:57 OBGyn Episode No OBEpisode recorded.
--- OUTSIDE RECORDS SUMMARY | 2025-02-07 12:00 | XMS_ITS | Clinical Summary ---
Author Organization [facility] Address [address] [place] [id number] Care Team Providers Care Shipping Clerk Packing Name Role Phone Simón Jorgensen MD Primary Care Provider [phone] Allergies No known active allergies Medications ondansetron (ZOFRAN ODT) 4 MG disintegrating tablet Take 1 tablet (4 mg total) by mouth every 8 (eight) hours as needed. 15 tablet Active Social History Tobacco Use Types Packs/Day Years Used Date Smoking Tobacco: Never Alcohol Use Standard Drinks/Week Comments Yes 0 (1 standard drink = 0.6 oz pur e alcohol) sociall Comments No Sex and Gender Information Value Date Recorded Sex Assigned at Not on file Legal Sex Female 9:43 PM PAD MACHINE OFFBEARER Gender Identity Not on file Sexual Orientation Not on file Last Filed Vital Signs Vital Sign Reading Time Taken Comments Blood Pressure 133/89 12/27/2022 9:27 AM PAD MACHINE OFFBEARER Pulse 83 12/27/2022 9:27 AM PAD MACHINE OFFBEARER Temperature 36.7 C (98.1 F) 12/27/2022 8:29 AM PAD MACHINE OFFBEARER Respiratory Rate 16 12/27/2022 9:27 AM PAD MACHINE OFFBEARER Oxygen Saturation 99% 12/27/2022 9:27 AM PAD MACHINE OFFBEARER Inhaled Oxygen Concentration - - Weight 101.2 kg (223 lb) 12/27/2022 8:30 AM PAD MACHINE OFFBEARER Height 165.1 cm (5' 5 ) 12/27/2022 8:29 AM PAD MACHINE OFFBEARER Body Mass Index 37.11 12/27/2022 8:29 AM PAD MACHINE OFFBEARER Plan of Treatment Health Maintenance Due Date Last Done Comments Cervical Cancer Screening Pa p Smear (Age 30 to 64) Every 3 Years 1977 Colorectal Cancer Screening Colonoscopy (10 Years) 1977 Annual Physical 02/07/1980 Hepatitis C 1995 Hepatitis B Vaccines (1 of 3 - 19+ 3-dose series) 02/07/1996 Cervical Cancer Screening Pa p with HPV Testing (Age 30 to 64) Every 5 Years 2007 Cervical Cancer Screening wi th HPV 2007 Mammogram Screening 2017 DTaP, Tdap and Td Vaccines ( 2 - Td or Tdap) 02/04/2019 02/04/2009 COVID-19 Vaccine (3 - 2023-2 5 season) 2024 01/30/2021, 01/06/2021 Meningococcal B Vaccine Aged Out No l onger eligible based on patient's age to complete this topic Meningococcal Vaccine Aged Out No arpita van eligible based on patient's age to complete this topic Pneumococcal Vaccine: Pediatrics (0 to 5 Years) and At-Risk Patients (6 to 49 Years) Aged Out No longer eligible b ased on patient's age to complete this topic RSV Immunizations Under 20 Months Aged Out No longer eligible b ased on patient's age to complete this topic Insurance [facility] Care Teams Shipping Clerk Packing Relationship Specialty Start Date End Date Simón Jorgensen MD [address] [place] [address] PCP - General [facility]IC[facility] 04/15/21
[2025-02-07 12:01] VITALS: BP 148/82; PULSE 66; RESP 16; TEMP 36.6; O2SAT 98
--- OUTSIDE RECORDS SUMMARY | 2025-02-07 12:01 | XMS_ITS | Continuity of Care Document ---
Author Organization [facility] Address [address] [place] [address] [address] [place] [address] Phone Care Team Providers Care Face Boss Name Role Phone Stevan PT, DPT, Lorena Unavailable Unavaila ble Procedures Procedure Date Therapeutic Activities Neuromuscular Re-Ed Therapeutic Exercise Manual Therapy Therapeutic Activities Neuromuscular Re-Ed Manual Therapy Therapeutic Exercise Therapeutic Activities Neuromuscular Re-Ed Therapeutic Exercise Manual Therapy PT Evaluation Moderate Complexity Therapeutic Activities Neuromuscular Re-Ed Therapeutic Exercise Manual Therapy THERAPEUTIC EXERCISES NEUROMUSCULAR RE-ED MANUAL THERAPY FUNC ACTIVITY ELECTRIC STIMULATION UNATT HOT/COLD PACK THERAPEUTIC EXERCISES NEUROMUSCULAR RE-ED MANUAL THERAPY FUNC ACTIVITY ELECTRIC STIMULATION UNA PT EVALUATION THERAPEUTIC EXERCISES HOT/COLD PACK ELECTRIC STIMULATION UNA THERAPEUTIC EXERCISES NEUROMUSCULAR RE-ED FUNC ACTIVITY 15 MIN HOT/COLD PACK ELECTRIC STIMULATION UNATT THERAPEUTIC EXERCISES NEUROMUSCULAR RE-ED FUNC ACTIVITY 15 MIN HOT/COLD PACK ELECTRIC STIMULATION UNATT THERAPEUTIC EXERCISES NEUROMUSCULAR RE-ED FUNC ACTIVITY 15 MIN HOT/COLD PACK ELECTRIC STIMULATION UNATT THERAPEUTIC EXERCISES NEUROMUSCULAR RE-ED HOT/COLD PACK ELECTRIC STIMULATION UNATT THERAPEUTIC EXERCISES NEUROMUSCULAR RE-ED HOT/COLD PACK ELECTRIC STIMULATION UNATT PT EVALUATION THERAPEUTIC EXERCISES NEUROMUSCULAR RE-ED Advance Directives Directive Yes / No Effective Date File Name No Information Encounters Encounter Description Practice Location Reason(s) For Visit Diagnoses Date Provider Providers Copied on Encounter [facility], [id number], tel:[phone] [place] No Information Apr-1 4-202 5 Calles Lorena. . [facility] [facility] [address], [place], [id number], tel:[phone] [place] No Information Apr-0 9-202 5 Calles Lorena. . Referring Provider: Raquel Souza1 [address] [facility] [address], [place], [address]. tel:[phone] [facility] [address] [facility] [address], [place], [place], [id number], tel:[phone] [place] No Information Apr-0 4-202 5 Calles Lorena. . Referring Provider: Raquel Souza1 [address], [place], [address]. tel:[phone] [facility] [facility] [address], [place], [place], [id number], tel:[phone] [place] No Information Apr-0 2-202 5 Calles Lorena. . Referring Provider: Liza Doshi, [address], [place], [address]. tel:[phone] [address], [place], [id number], [place] tel:[phone] [place] No Information Mar-2 8-202 5 Calles Lorena. . Referring Provider: Liza Doshi, [address], [place], [address]. tel:[phone] [address], [place], [place], [id number], [place] tel:[phone] [place] No Information Oct-2 1-201 4 Muehl Keyshawn. [address] [place] [address], [address], [place], [place], [facility], [place]. tel:[phone] [facility] [address] [place], [place] [address], [place], [place], [id number], [place] tel:[phone] [place] No Information Jul-1 7-201 4 Muehl Keyshawn. [address] [place] [address], [address], [place], [place], [facility], [place]. tel:[phone] [facility] [address] [place], [place] [address], [place], [id number], [place] tel:[phone] [place] Pain in joint involving lower leg Oct-1 0-201 4 Muehl Keyshawn. [address] [place] [address], [address], [place], [place], [facility], [place]. tel:[phone] [facility] [address] [place], [place] [address], [place], [place], [id number], [place] tel:[phone] [place] No Information Mar-2 6-201 3 Keyona Jed. [address] [place] [address], [address], [place], [place], [facility], [place]. tel:[phone] Referring Provider: Angelic Griffiths, [facility] [address], [place], [address]. tel:[phone], [id number], tel:[phone] [place] No Information Mar-2 2-201 3 Keyona Jed. [address] [place] [address], [address], [place], [facility], . tel: [phone] Referring Provider: Angelic Griffiths, [facility] [address], [address]. tel:[phone], [place], [id number], tel:[phone] [place] No Information Mar-2 0-201 3 Keyona Jed. [address] [place] [address], [address], [place], [facility], . tel: [phone] Referring Provider: Angelic Griffiths, [address] [place] [address] [address], [address]. tel:[phone], [id number], tel:[phone] [place] No Information Mar-1 5-201 3 Keyona Jed. [address] [place] [address], [address], [place], [facility], . tel: [phone] Referring Provider: Angelic Griffiths, [address] [place] [address] [address], [address]. tel:[phone], [id number], tel:[phone] [place] No Information Mar-0 7-201 3 Keyona Jed. [address] [place] [address], [facility] [address], [place], [facility], . tel:[phone] Referring Provider: Angelic Griffiths, [facility] [address], [address]. tel:[phone], [id number], [place] tel:[phone] Brenda LumbagoRadicu litis, Thoracic or Lumbar Dec-0 3 Keyona Adkins. [address] [facility], [address], [place], [address], [place]. tel: [phone] Referring Provider: Angelic Griffiths, [address] [facility] [address], [place], [address]. tel:[phone] Family History Family Member Type Diagnosis Age At Onset No Information Payers Payer name Insurance type Covered libertarian ID Authorsanthosh greene(s) Skigit CI [id number] Social History Type Description Quantity Date Captured Comments Sex Female Smoking Status No Information Chief Complaint And Reason For Visit No Information Reason For Referral Reason For Referral No Information Plan Of Treatment Date Type Action Status Appointment Najma Lizarraga Do Prabhjot BOOKED Appointment Najma Lizarraga BOOKED Appointment Najma Lizarraga BOOKED Appointment Najma Lizarraga BOOKED Appointment Najma Lizarraga BOOKED History Of Present Illness Encounter Date Complaint History Of Prese nt Illness No Information Functional Status Date Functional Assessmen t No Information Instructions Date Instruction Additional Infor mation No Information Assessments Type Assessment Date No Information Patient Care Teams Name Effective Dates (start - stop) Status Members No Information
--- OUTSIDE RECORDS SUMMARY | 2025-02-07 12:01 | XMS_ITS | Clinical Summary ---
Author Organization [email or web address] Address [address] [place] [address] Care Team Providers Care Harvest Field Ticketer Name Role Phone Rodo Garza MD Primary Care Provider [phone] Source Comments [email or web address],non-owned Affiliates and Associated Physician Practices is amultiple site organization consisting of ambulatory clinics and hospital sitesin [place], [place], [place] and [place]. This disclosure is being madepursuant to the Care Everywhere program and may not contain all information available regarding this patient. Last updated 18.[email or web address] Allergies No known active allergies Medications * Be aware that medications may not be up to date on this document. Alwaysverify current medications with the patient. furosemide (LASIX) 20 MG tablet Active docusate sodium (COLACE) 100 MG capsule Stool Softener Activ e POTASSIUM BICARBONATE PO Activ e ascorbic acid (VITAMIN C) 500 MG tablet Take one tablet twice daily 08/21/20 19 Active diphenhydramine -APAP, sleep, (TYLENOL PM ES) 25-500 MG tablet Take 1 tablet by mouth once daily Active sertraline (ZOLOFT) 25 MG tablet Take 25 mg by mouth once daily Active sertraline (ZOLOFT) 100 MG tablet TK 1 T PO QD 07/22/20 20 Active sertraline (ZOLOFT) 50 MG tablet TK 1 T PO QD 03/03/20 20 Active nebivolol (BYSTOLIC) 10 MG tablet Take 1 (one) tablet by mouth once daily Active diclofenac sodium EC (VOLTAREN) 75 MG tablet TK 1 T PO BID 12/23/19 20 Active fenofibrate (TRICOR) 145 MG tablet Take 145 mg by mouth once daily Active hydrOXYzine HCl (Atarax) 10 MG tablet Take 1 (one) tablet by mouth 2 times daily Active phentermine (Adipex-P) 37.5 MG capsule Take 1 (one) capsule by mouth once daily Active Wegovy 2.4 MG/0.75ML pen Inject 2.4 mg subcutaneously every 7 days Active topiramate (Topamax) 50 MG tablet Take 1 (one) tablet by mouth once daily Active furosemide (Lasix) 40 MG tablet Take 1 (one) tablet by mouth once daily Active methylPREDNISol one (Medrol Dosepak) 4 MG tablet Take by mouth as directed Take as directed by mouth per package instructions. 21 tablet 01/13/20 25 Active Hospital, Clinic, or Other Facility Administered Medication Ordered Dose Route Frequency Start Date End Date Status lidocaine (Xylocaine) 1 % injectionIndications :Trochanteric bursitis of both hips INFILTRATION ONCE 01/12/2025 01/12/2025 Ended ROPivacaine (Naropin) 5 MG/ML (0.5%) injection 5 mgIndications:Trocha nteric bursitis of both hips 5 mg INFILTRATION ONCE 01/12/2025 01/12/2025 Ended triamcinolone acetonide (Kenalog-40) injection 40 mgIndications:Trocha nteric bursitis of both hips 40 mg IX ONCE 01/12/2025 01/12/2025 Ended Encounters Date Type Department Care Team Description 01/12/2025 11:15 AM CDT - 01/12/2025 11:59 PM CDT Hospital Encounter [facility] [address] [place] [address] Liza Doshi MD Discharge Disposition: Home or Self Care 01/12/2025 11:14 AM CDT Hospital Encounter [facility] RAD [facility] [address] [place] [address] Liza Doshi MD Discharge Disposition: Home or Self Care 01/12/2025 10:50 AM CDT Office Visit [facility] [address] [place] [address] Liza Doshi MD Greater trochanteric bursitis of right hip (Primary Dx); Trochanteric bursitis of both hips 01/12/2025 Orders Only [facility] [address] [place] [address], [place] [address] Liza Doshi MD Trochanteric bursitis of both hips 01/12/2025 Travel 12/29/2024 Orders Only [facility] [address] [place] [address], [facility] [place] [address] Liza Doshi MD Bilateral hip pain from Last 3 Months Family History Medical History Relation Name Comments CAD (Coronary Artery Disease) Father Asthma Neg Hx Autoimmune Disease Neg Hx Bipolar Disorder Neg Hx Cancer - Breast Neg Hx Cancer - Colon Neg Hx Cancer - Other Neg Hx Cancer - Ovarian Neg Hx Cancer - Pancreatic Neg Hx Cancer - Prostate Neg Hx Depression Neg Hx Eczema Neg Hx Hypertension Neg Hx Migraine Neg Hx Osteoporosis Neg Hx Seizures Neg Hx Sudd. <30 Neg Hx Thyroid Disease Neg Hx Ulcerative Colitis Neg Hx Relation Name Status Comments Father Alive Mother Alive Social History Tobacco Use Types Packs/Day Years Used Date Smoking Tobacco: Never Smokeless Tobacco: Never Tobacco Cessation:Counseling Given: Not Answered Alcohol Use Standard Drinks/Week Comments No 0 (1 standard drink = 0.6 oz pur e alcohol) PHQ-2 Answer Date Recorded Patient Health Questionnaire-2 Score 2 01/05/2025 Comments No Sex and Gender Information Value Date Recorded Sex Assigned at Not on file Legal Sex Female 6:44 AM CDT Gender Identity Not on file Sexual Orientation Not on file Last Filed Vital Signs Vital Sign Reading Time Taken Comments Blood Pressure 110/70 04/07/2021 12:12 PM CDT Pulse 72 04/07/2021 12:12 PM CDT Temperature 36.4 C (97.6 F) 04/07/2021 12:12 PM CDT Respiratory Rate 17 04/07/2021 12:12 PM CDT Oxygen Saturation 98% 04/13/2020 12:33 PM CDT Inhaled Oxygen Concentration - - Weight 113.4 kg (250 lb) 01/12/2025 11:23 AM CDT Height 165.1 cm (5' 5 ) 01/12/2025 11:23 AM CDT Body Mass Index 41.6 01/12/2025 11:23 AM CDT Plan of Treatment Upcoming Encounters Date Type Department Care Team (Late st Contact Info) Description 02/23/2025 11:00 AM CDT Office Visit [facility] [address] [facility], [place] [address] Liza Doshi MD [address] [facility] [address] [place] [address] Health Maintenance Due Date Last Done Comments COLOGUARD (AGES 45-75) - COLON CA SCREENING 1977 COLON MONITORING 1977 COLONOSCOPY - COLON CA SCREENING 1977 CT COLONOGRAPHY - COLON CA SCREENING 1977 Colorectal Cancer Screening 1977 FIT - COLON CA SCREENING 1977 FLEX SIG - COLON CA SCREENING 1977 LIPID TESTING 1977 MAMMOGRAM 1977 HEPATITIS C SCREENING 02/02/1995 DTAP/TDAP/TD VACCINES (1 - Tdap) 02/07/1996 HEPATITIS B VACCINE (1 of 3 - 19+ 3-dose series) 02/07/1996 PAP SMEAR 02/03/2024 02/02/2021 SCREENING FOR DIABETES 03/07/2024 COVID-19 VACCINE ( season) 2024 01/30/2021, 01/06/2021 INFLUENZA VACCINE (Season Ended) 2025 07/24/2017, 07/22/2015, 07/31/2014, Additional history exists ZOSTER VACCINE (1 of 2) 2027 HIV SCREENING Completed 08/14/2024 DEPRESSION SCREENING Completed 01/12/2025, 03/07/20 24 HIB VACCINE Aged Out No longer eligi ble based on patient's age to complete this topic HPV VACCINE Aged Out No longer eligi ble based on patient's age to complete this topic MENINGOCOCCAL (Group B) VACCINE SHARED DECISION-MAKING Aged Out No longer eligible based on patient's age to complete this topic MENINGOCOCCAL GROUPS A/C/Y/W VACCINE Aged Out No longer eligible based on patient's age to complete this topic PNEUMOCOCCAL VACCINE Aged Out No long er eligible based on patient's age to complete this topic Procedures Procedure Name Priority Date/Time Associated Diagnosis Comments XR HIP LEFT 2VW OR MORE Routine 01/12/2025 11:23 AM CDT Bilateral hip pain XR HIP RIGHT 2VW OR MORE Routine 01/12/2025 11:23 AM CDT Bilateral hip pain from Last 3 Months Results * XR Hip Left 2Vw or More (01/12/2025 11:23 AM CDT) Anatomical Region Laterality Modality Pelvis, Lower Extremity Computed Radiography 01/12/2025 11:3 1 AM CDT Impressions 01/12/2025 11:31 AM CDT IMPRESSION: Very mild degenerative change. > Interpreting Provider: Victor Manuel Murray MD on 01/12/2025 11:31 AM Narrative 01/12/2025 11:31 AM CDT PROCEDURE: XR HIP LEFT 2VW OR MORE DATE/TIME OF EXAM: 01/12/2025 11:23 AM CLINICAL INFORMATION: None relevant/not provided if blank. Indication: M25.551: Bilateral hip pain M25.552: Bilateral hip pain Additional History: COMPARISON: None. FINDINGS: No fracture or dislocation is present. There is very mild degenerative change without joint space narrowing. There are no erosions. Procedure Note Victor Manuel Murray MD - 01/12/2025 PROCEDURE: XR HIP LEFT 2VW OR MORE DATE/TIME OF EXAM: 01/12/2025 11:23 AM CLINICAL INFORMATION: None relevant/not provided if blank. Indication: M25.551: Bilateral hip pain M25.552: Bilateral hip pain Additional History: COMPARISON: None. FINDINGS: No fracture or dislocation is present. There is very mild degenerative change without joint space narrowing. There are no erosions. IMPRESSION: Very mild degenerative change. > Interpreting Provider: Victor Manuel Murray MD on 01/12/2025 11:31 AM Liza Doshi MD DIAGNOSTIC IMAGING ORDERABLES Fi nal Result * XR Hip Right 2Vw or More (01/12/2025 11:23 AM CDT) Anatomical Region Laterality Modality Pelvis, Lower Extremity Computed Radiography 01/12/2025 11:3 1 AM CDT Impressions 01/12/2025 11:32 AM CDT IMPRESSION: No significant hip arthritis. > Interpreting Provider: Victor Manuel Murray MD on 01/12/2025 11:32 AM Narrative 01/12/2025 11:32 AM CDT PROCEDURE: XR HIP RIGHT 2VW OR MORE DATE/TIME OF EXAM: 01/12/2025 11:23 AM CLINICAL INFORMATION: None relevant/not provided if blank. Indication: M25.551: Bilateral hip pain M25.552: Bilateral hip pain Additional History: COMPARISON: None. FINDINGS: No fracture or dislocation is present. The joint space is normal. There are no erosions. There are iliac crests and ischial tuberosity enthesophytes. Procedure Note Victor Manuel Murray MD - 01/12/2025 PROCEDURE: XR HIP RIGHT 2VW OR MORE DATE/TIME OF EXAM: 01/12/2025 11:23 AM CLINICAL INFORMATION: None relevant/not provided if blank. Indication: M25.551: Bilateral hip pain M25.552: Bilateral hip pain Additional History: COMPARISON: None. FINDINGS: No fracture or dislocation is present. The joint space is normal. Thereare no erosions. There are iliac crests and ischial tuberosityenthesophytes. IMPRESSION: No significant hip arthritis. > Interpreting Provider: Victor Manuel Murray MD on 01/12/2025 11:32 AM Liza Doshi MD DIAGNOSTIC IMAGING ORDERABLES Fi nal Result from Last 3 Months Insurance [employer] Care Teams Harvest Field Ticketer Relationship Specialty Start Date End Date Rodo Garza MD [facility] [place] [address] PCP - General Family Medicine 07/17/18
--- OUTSIDE RECORDS SUMMARY | 2025-02-07 12:01 | XMS_ITS | Referral Summary ---
Author Organization [facility] Address [address] [place] [address] Care Team Providers Care Protective Signal Repairer Name Role Phone Simón Jorgensen MD Primary Care Provider [phone] Allergies No known active allergies Medications docusate sodium (STOOL SOFTENER) 100 mg capsuleIndicati ons:constipatio n Stool Softener Active cholecalciferol (VITAMIN D-3) 2,000 unit capsule Take 1 capsule (2,000 Units total) by mouth daily 30 capsule 08/21/2019 Active furosemide (LASIX) 40 mg tablet Take 40 mg by mouth daily Active diphenhydrAMINE -acetaminophen (TYLENOL PM) 25-500 mg tablet Take 1 tablet by mouth nightly Active nebivoloL (BYSTOLIC) 10 mg tablet Take 10 mg by mouth daily Active sertraline (ZOLOFT) 100 mg tablet TK 1 T PO QD 07/22/2020 Active Active Problems Problem Noted Date Diagnosed Date Trigger thumb of right hand 08/20/2019 Overview (08/20/2019): Added automatically from request for surgery [id number] Carpal tunnel syndrome on right 08/20/2019 Overview (08/20/2019): Added automatically from request for surgery [id number] De Quervain's tenosynovitis 08/28/2018 Overview (08/28/2018): Added automatically from request for surgery [id number] Cubital tunnel syndrome on left 08/28/2018 Overview (08/28/2018): Added automatically from request for surgery [id number] Carpal tunnel syndrome of left wrist 08/28/2018 Overview (08/28/2018): Added automatically from request for surgery [id number] 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 Overview (08/28/2018): Added automatically from request for surgery [id number] Constipation 04/07/2018 Thrombosed external hemorrhoids 04/07/2018 Piles 07/28/2016 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 Delivered by section 09/09/2014 Delivery of by section 2013 Edema 03/07/2014 Overview (01/24/2017): Edema Morbid obesity 03/07/2014 Overview (01/24/2017): MORBID OBESITY Polycystic ovaries 03/07/2014 Overview (01/24/2017): POLYCYSTIC OVARIES Obesity, diabetes, and hypertension syndrome Overview (01/24/2017): DYSMETABOLIC SYNDROME X 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/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 Overview (01/25/2017): OSTEOARTHROS NOS-L/LEG Pure hyperglyceridemia 03/07/2014 Overview (01/26/2017): PURE HYPERGLYCERIDEMIA Palpitations 03/07/2014 Overview (01/26/2017): Palpitations Obesity 05/25/2009 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 Immunizations Immunization Administration Dates Next Due Influenza, Quadrivalent, Spl it, Preservative Free, Intramuscular 07/24/2017,07/22/2015 Influenza, Split 08/06/2012,07/18/2010 Influenza, Trivalent, Preservative Free, Intramu scular 07/31/2014 Tdap 02/04/2009 Social History Tobacco Use Types Packs/Day Years Used Date Smoking Tobacco: Never Smokeless Tobacco: Never Alcohol Use Standard Drinks/Week Comments No 0 (1 standard drink = 0.6 oz pur e alcohol) Comments No Sex and Gender Information Value Date Recorded Sex Assigned at Not on file Legal Sex Female 2:09 AM PRESCHOOL PRINCIPAL Gender Identity Not on file Sexual Orientation Not on file Last Filed Vital Signs Vital Sign Reading Time Taken Comments Blood Pressure 130/85 09/01/2020 10:18 AM PRESCHOOL PRINCIPAL Pulse 65 09/01/2020 10:18 AM PRESCHOOL PRINCIPAL Temperature 36.4 C (97.5 F) 09/01/2020 10:18 AM PRESCHOOL PRINCIPAL Respiratory Rate 18 09/09/2019 10:18 AM PRESCHOOL PRINCIPAL Oxygen Saturation 97% 09/09/2019 10:18 AM PRESCHOOL PRINCIPAL Inhaled Oxygen Concentration - - Weight 112 kg (247 lb) 09/01/2020 10:18 AM PRESCHOOL PRINCIPAL Height 165.1 cm (5' 5 ) 09/01/2020 10:18 AM PRESCHOOL PRINCIPAL Body Mass Index 41.1 09/01/2020 10:18 AM PRESCHOOL PRINCIPAL Plan of Treatment Not on file Procedures Procedure Name Priority Date/Time Associated Diagnosis Comments HEMOGLOBIN A1C Routine 07/24/2017 12:35 PM CDT Morbid obesity (HCC) SERUM LIPID PANEL Routine 12/03/2012 11: 36 AM PRESCHOOL PRINCIPAL from Last 3 Months or Most Recently Relevant to Health Maintenance Results * Hemoglobin A1c (07/24/2017 12:35 PM CDT) Hgb A1C 5.4 4.0 - 6.0 % AMANDA SIERRA Estimated Average Glucose 108 mg/dL AMANDA [facility] Comment: The ADA recommends reporting an estimated Average Glucose (eAG) with all Hemoglobin A1c results using the equation derived from a study of 507 normal and diabetic adults. Minority populations were underrepresented and children were not included. (Diabetes Care 31:1872-6930, 2008). The eAG is not equivalent to a fasting glucose. Blood specimen (specimen) 07/24/2017 12:35 PM CDT 07/24/2017 1:25 PM CDT Dee Dee FUNES LAB BLOOD ORDERABLES Final Result Performing Organization Address City/State/[facility] Co de Phone Number AMANDA SIERRA [facility] [place] [address] * (ABNORMAL) Serum lipid panel (12/03/2012 11:36 AM PRESCHOOL PRINCIPAL) Cholesterol 191 0 - 200 mg/dl HISTORICAL RESULTS Comment: Interpretive Data Desirable: <200 mg/dL Borderline high: 200-239 mg/dL High: >240 mg/dL Literature Reference: National Cholesterol Education Program (NCEP) Expert Panel on Detection, Evaluation, and Treatment of High Blood Cholesterol in Adults (Adult Treatment Panel III). Circulation 2004; 110:227. Current interpretive data was last revised on 2005. Triglycerides 227(H) 0 - 150 mg/dl HISTORICAL RESULTS Comment: Interpretive Data Desirable: < 150 mg/dL Borderline High: 150 - 199 mg/dL High: > 200 mg/dL Literature Reference: See Cholesterol Current interpretive data was last revised on 07. HDL 31(L) 40 - 199 mg/dl HISTORICAL RESULTS Comment: Interpretive Data Less than 40 mg/dL - low; A major risk factor for heart disease. Greater than or equal to 60 mg/dL - High; considered protective of heart disease. Literature Reference: See Cholesterol Current interpretive data was last revised on 2008. LDL 115 0 - 129 mg/dl HISTORICAL RESULTS Comment: Interpretive Data Optimal: < 100 mg/dL Near Optimal: 100 - 129 mg/dL Borderline High: 130 - 159 mg/dL High: > 160 mg/dL Literature Reference: See Cholesterol Current interpretive data was last revised on 07. Non-HDL cholesterol, calculated 160 mg/dl HISTORICAL RESULTS Comment: Interpretive Data When triglycerides are >200 mg/dL, non-HDL C is a secondary target of therapy, with a goal 30 mg/dL higher than the identified LDL-C goal. Reference: See Cholesterol Reference. Current interpretive data was last revised 2012. Serum 12/03/2012 11:3 6 AM PRESCHOOL PRINCIPAL us Angelic Griffiths MD LAB BLOOD ORDERABLES F inal Result HISTORICAL RESULTS from Last 3 Months or Most Recently Relevant to Health Maintenance [facility] [employer] OPEN ACCESS Member Subscriber Plan / Payer (Ef fective 2018-Present) Name:Najma Orta Member ID:[id number] Relation to Subscriber:Self Name:NAJMA ORTA Subscriber ID:[id number] Payer ID:[id number] Type:HEALTHLINK HMO/PPO Address: [address] [employer] OPEN ACCESS Care Teams Protective Signal Repairer Relationship Specialty Start Date End Date Simón Jorgensen MD [address] [place] [id number] PCP - General Family Medicine 08/18/20
--- OUTSIDE RECORDS SUMMARY | 2025-02-07 12:01 | XMS_ITS | Clinical Summary ---
Author Organization [facility] Address [address] [place] [address] Care Team Providers Care General Scrap Worker Name Role Phone Simón Jorgensen MD Primary Care Provider [phone] Allergies No known active allergies Medications docusate [...] (08/20/2019): Added automatically from request for surgery [id number] Carpal tunnel syndrome on right 08/20/2019 Overview (08/20/2019): Added automatically from request for surgery [id number] De Quervain's tenosynovitis 08/28/2018 Overview (08/28/2018): Added automatically from request for surgery [id number] Cubital tunnel syndrome on left 08/28/2018 Overview (08/28/2018): Added automatically from request for surgery [id number] Carpal tunnel syndrome of left wrist 08/28/2018 Overview (08/28/2018): Added automatically from request for surgery [id number] 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 Overview (08/28/2018): Added automatically from request for surgery [id number] Constipation 04/07/2018 Thrombosed external hemorrhoids 04/07/2018 Piles [...] Preservative Free, Intramu scular 07/31/2014 Tdap 02/04/2009 Surgical History Surgery Date Site/Laterality Comments SECTION section CARPAL TUNNEL RELEASE DILATION AND CURETTAGE OF UTERUS 03/22/2019 - 04/20/2019 and Endometrial Ablaton TUBAL LIGATION 03/22/2019 - 04/20/2019 Medical History Medical History Date Comments Arthritis Arthritis Hyperlipidemia Hyperlipidemia Hx Other Medical Polycystic ovar ies Anxiety disorder anxiety; Outcom e: resolved Hx Other Medical High Cholestero l Hx Other Medical C- section Depression post Family History Medical History Relation Name Comments Allergies Father Allergies; Diabetes type II Father Diabetes -T ype II; Heart disease Father Heart disease; Hypertension Father Hypertension; Other Mother Alive and well; Diabetes Other 1 Family history of Diabetes mellitus; Cancer Other 2 Family history of Cancer, unknown; Heart disease Other 3 Family history of Heart problems; Relation Name Status Comments Father Mother Alive Other 1 Other 2 Other 3 Social History Tobacco Use Types Packs/Day Years Used Date Smoking Tobacco: Never Smokeless Tobacco: Never Alcohol Use Standard Drinks/Week Comments No 0 (1 standard drink = 0.6 oz pur e alcohol) Comments No Sex and Gender Information Value Date Recorded Sex Assigned at Not on file Legal Sex Female 2:09 AM LOTUS NOTES ADMINISTRATOR Gender Identity Not on file Sexual Orientation Not on file Obstetrics History Last Filed Vital Signs Vital Sign Reading Time Taken Comments Blood Pressure 130/85 09/01/2020 10:18 AM LOTUS NOTES ADMINISTRATOR Pulse 65 09/01/2020 10:18 AM LOTUS NOTES ADMINISTRATOR Temperature 36.4 C (97.5 F) 09/01/2020 10:18 AM LOTUS NOTES ADMINISTRATOR Respiratory Rate 18 09/09/2019 10:18 AM LOTUS NOTES ADMINISTRATOR Oxygen Saturation 97% 09/09/2019 10:18 AM LOTUS NOTES ADMINISTRATOR Inhaled Oxygen Concentration - - Weight 112 kg (247 lb) 09/01/2020 10:18 AM LOTUS NOTES ADMINISTRATOR Height 165.1 cm (5' 5 ) 09/01/2020 10:18 AM LOTUS NOTES ADMINISTRATOR Body Mass Index 41.1 09/01/2020 10:18 AM LOTUS NOTES ADMINISTRATOR Plan of Treatment Health Maintenance Due Date Last Done Comments Albumin Creatinine Ratio, Urine 1977 Breast Cancer Screening-Mammogram 1977 Cervical Cancer Screening 1977 Colon Cancer Screening-Colonoscopy 1977 Hepatitis C Screening 1977 eGFR 1977 Dilated Eye Exam 1977 Foot Exam 1977 Hepatitis B Screening 1995 Regular Well Visit/Exam 18-64 1995 Pneumococcal vaccine <65 (1 of 2 - PCV) 02/07/1996 Lipid Panel 12/03/2013 12/03/2012 Hemoglobin A1C 01/22/2018 07/24/2017 Depression Screening 07/24/2018 07/24/2017 DTaP/Tdap/Td Vaccine (2 - Td or Tdap) 02/04/2019 02/04/2009 Covid-19 Vaccine (5 - 2023-2 5 season) 2024 07/26/2022, 08/15/2021, 01/30/2021, Additional history exists Influenza Vaccine (#1) 2024 , 08/15/2021, 07/24/2017, Additional history exists Procedures Procedure Name Priority Date/Time Associated Diagnosis Comments HEMOGLOBIN A1C Routine 07/24/2017 12:35 PM CDT Morbid obesity (HCC) SERUM LIPID PANEL Routine 12/03/2012 11: 36 AM LOTUS NOTES ADMINISTRATOR from Last 3 Months or Most Recently Relevant to Health Maintenance Results * Hemoglobin A1c (07/24/2017 12:35 PM CDT) Hgb A1C 5.4 4.0 - 6.0 % AMANDA SIERRA Estimated Average Glucose 108 mg/dL AMANDA [facility] Comment: The ADA recommends reporting an estimated Average Glucose (eAG) with all Hemoglobin A1c results using the equation derived from a study of 507 normal and diabetic adults. Minority populations were underrepresented and children were not included. (Diabetes Care 31:9786-2402, 2008). The eAG is not equivalent to a fasting glucose. Blood specimen (specimen) 07/24/2017 12:35 PM CDT 07/24/2017 1:25 PM CDT us Dee Dee FUNES LAB BLOOD ORDERABLES Final Result [facility] Department [place] [address] * (ABNORMAL) Serum lipid panel (12/03/2012 11:36 AM LOTUS NOTES ADMINISTRATOR) Cholesterol 191 0 - 200 mg/dl HISTORICAL [...] revised 2012. Serum 12/03/2012 11:3 6 AM LOTUS NOTES ADMINISTRATOR Angelic Griffiths MD LAB BLOOD ORDERABLES F inal Result HISTORICAL RESULTS from Last 3 Months or Most Recently Relevant to Health Maintenance Insurance [employer] [facility] Member Subscriber Plan / Payer (Ef fective 2018-Present) Name:Najma Orta Member ID:[id number] Relation to Subscriber:Self Name:NAJMA ORTA Subscriber ID:[id number] Payer ID:[id number] Type:HEALTHLINK HMO/PPO [address] [facility] [employer] OPEN ACCESS Care Teams General Scrap Worker Relationship Specialty Start Date End Date Simón Jorgensen MD [address] [place] [address] PCP - General Family Medicine 08/18/20
--- OUTSIDE RECORDS SUMMARY | 2025-02-07 12:01 | XMS_ITS | Data Portability ---
Author Organization [facility] Address [address] [place] [address] Care Team Providers Care Weekday Babysitter Name Role Phone VALERI HENDERSON Primary Care Provider [phone] RICK PONCE Primary Care Provider [phone] Assessment Encounter Date Assessment Date Assessment LastModified by Organization Details LastModified Time 11/28/2023 11/28/2023 Annual gynecological exam performed. Patient will come back in a year unless there are new symptoms. [email or web address] Not available 11/28/2023 09:37:20 Plan of Treatment Reminders Order Date Submit Date Provider Last Modified By Organization Details Last Modified Time Details Appointments None recorded. Lab herpes simplex, culture, unspecified specimen 2023 [facility] (Lab), [address] [place], [address], 4 04:07:54 chlamydia + gonorrhea DNA panel, unspecified specimen 2023 [facility] (Lab), [address] [place], [address], 4 04:07:54 HIV (1+2) Ab, qual, unspecified specimen [address] [facility] (Lab), [address] [place], [address], 4 04:07:54 HSV (1+2) DNA, qual, PCR, unspecified specimen [address] [facility] (Lab), [address] [facility], [place], [address], 4 18:03:14 RPR (rapid plasma reagin), serum [address] [facility] (Lab), [address], [place], [address], 4 04:07:54 Referral None recorded. Procedures None recorded. Surgeries None recorded. Imaging MAMMO, screening, bilateral [address] [facility], [address], [place] [address], [place], [address], 4 09:56:35 Medication Orders valacyclovi r 1 gram tablet 2023 024 [facility] #[id number], [address], [place], [id number], 4 16:40:49 Wegovy 2.4 mg/0.75 mL subcutaneou s pen injector 2022 023 [facility] #[id number], [address], [place], [id number], 3 14:45:27 phentermine 37.5 mg capsule 2022 023 [facility] #[id number], [address], [place], [id number], 3 14:45:27 Wegovy 2.4 mg/0.75 mL subcutaneou s pen injector 2022 023 [facility] #[id number], [address], [place], [id number], 3 10:39:52 Wegovy 1 mg/0.5 mL subcutaneou s pen injector 2022 024 [id number], [address] [facility], [place], [place], [id number], 4 09:40:31 Patient TargetsNo targets recorded. Patient Instructions Encounter Date Encounter Id Patient Instructions Last Modified By Organization Details Last Modified Time 08/14/[id number] exposure to sexually transmitted infections: care instructions [email or web address] Not available 08/14/2024 16:40:40 Reason for Referral None Reported. Results Created Date Observation Date Name Description Value Unit Range Abnormal Flag Note LastModifiedBy Organization Detail LastModifiedTime 08/14/20 24 08/14/2024 HEPAT ITIS C ANTIB ALTAGRACIA SCREE N, REFLE X TO CONFI RMATI ON hepatitis C antibody Non-re active non-re active Antib odies to HCV Not Detec ilana, does not exclu de the possi bilit y of expos ure to HCV. Not Available [facility] (Lab) [address], [place], [address], 08/15/2024 12:53:13 08/14/20 24 08/14/2024 HIV 1/2 ANTIG EN/AN TIBOD Y, REFLE X CONFI RMATI ON HIV antigen/anti body Nonrea ctive nonrea ctive HIV-1 antig en and HIV-1 /HIV- 2 antib odies were not detec ilana. No labor atory evide nce of HIV infec tion. Not Available [facility] (Lab) [address], [place], [address], 08/15/2024 12:53:13 08/14/20 24 08/14/2024 HEPAT ITIS B SURFA CE ANTIG EN hepatitis B surface antigen Non-re active non-re active This assay was perfo rmed using [employer] n reage nts and test kits. Value s obtai irasema with other assay metho ds or kits canno t be used inter mishra eably . Not Available [facility] (Lab) [address] [place], [address], 08/15/2024 12:53:13 08/14/2008/14/2024 HERPE S SMPLE X VIRUS TYPE 1 SPECI FIC AB, IGG herpes simplex virus 1 IgG Negati ve negati ve Not Available [facility] (Lab) [address] [place], [address], 08/15/2024 12:53:14 08/14/2008/14/2024 HERPE S SMPLE X VIRUS TYPE 1 SPECI FIC AB, IGG herpes simplex virus 1 IgG, quant <0.2 ai 0.0-0. 8 Not Available [facility] (Lab) [address] [place], [address], 08/15/2024 12:53:14 08/14/2008/14/2024 HERPE S SIMPL EX VIRUS TYPE 2 SPECI FIC AB, IGG herpes simplex virus 2 IgG Negati ve negati ve Not Available [facility] (Lab) [address] [place], [address], 08/15/2024 12:53:14 08/14/2008/14/2024 HERPE S SIMPL EX VIRUS TYPE 2 SPECI FIC AB, IGG herpes simples virus 2 IgG, quant <0.2 ai 0.0-0. 8 Not Available [facility] (Lab) [address] [place], [address], 08/15/2024 12:53:14 08/14/2008/14/2024 HEPAT ITIS B CORE, IGM hepatitis B core IgM antibody Non-re active non-re active IgM anti- HBc not detec ilana. Does not exclu de the possi bilit y of expos ure to or infec tion with HBV. Not Available [facility] (Lab) [address] [place], [address], 08/15/2024 12:53:15 08/14/2008/14/2024 RPR SCREE N, REFLE X TITER /CONF IRMAT ION RPR screen Nonrea ctive nonrea ctive Not Available [facility] (Lab) [address] [facility], [place], [address], 08/15/2024 12:53:15 08/14/2008/14/2024 WOMEN 'S HEALT H SWAB PLUS, TIMOTEO bacterial vaginosis (bv), tma Positi ve negati ve abnormal Not Available [facility] (Lab) [address] [facility], [place], [address], 08/16/2024 14:13:51 08/14/2008/14/2024 [facility], TIMOTEO janie species, tma Negati ve negati ve Not Available [facility] (Lab) [address] [place], [address], 08/16/2024 14:13:51 08/14/2008/14/2024 WOMEN 'S HEALT H SWAB PLUS, TIMOTEO janie glabrata, tma Negati ve negati ve Not Available [facility] (Lab) [address] [facility], [place], [address], 08/16/2024 14:13:51 08/14/20 24 08/14/2024 [facility] SWAB PLUS, TIMOTEO trichomonas vaginalis, tma Negati ve negati ve Not Available [facility] (Lab) [address] [facility], [place], [address], 08/16/2024 14:13:51 08/14/2008/14/2024 WOMEN 'S HEALT H SWAB PLUS, TIMOTEO chlamydia trachomatis, PCR Negati ve negati ve Not Available [facility] (Lab) [address] [place], [address], 08/16/2024 14:13:51 08/14/20 24 08/14/2024 WOMEN 'S HEALT H SWAB PLUS, TIMOTEO neisseria gonorrhoeae, PCR Negati ve negati ve Bacte rial vagin osis detec ts the follo wing bacte hector assoc iated with bacte rial vagin osis (BV): Lacto bacil rosario (L. gasse ri, L. crisp atus and L. jense georgi), Gardn erell a vagin fracisco, and Atopo bium vagin ae. A singl e quali tativ e resul t is repor ilana base on instr ument softw are to deter mine BV posit kayleen or negat kayleen statu s. The Em da speci es group tests for C. albic ans, C. tropi calis , C. parap alice is, C. dubli niens is. Testi ng is perfo rmed using the Trans c[employer] ion [employer] ilana Ampli ficat ion metho d. Tests for Em da glabr maria guadalupe, Trich omona s vagin fracisco, Chlam ydia trach omati s, and Neiss eria gonor rhoea e are also inclu ded in this panel . Not Available [facility] (Lab) [address] [facility], [place], [address], 08/16/2024 14:13:51 08/14/20 24 08/14/2024 HERPE S SUBTY PE(HS V1/HS V2) RT-PC R, ONESW AB herpes subtype (hsv-1, hsv-2) PCR Negati ve (HSV-1 ,HSV-2 ) Swab- 1 Cerv End HSV-1 :Nega tive HSV-2 :Nega tive. Not Available [facility] (Lab) [address] [facility], [place], [address], 08/19/2024 18:03:14 09/25/20 23 09/25/2023 MAMMO , scree susan, bilat eral No observ ation record ed. [email or web address] [facility] [address], [place], [address], 11/28/2023 10:01:21 11/25/19 25 11/25/2024 imagi ng/di agnos tic resul t No observ ation record ed. [email or web address] [address], [place], [address], 11/25/2024 17:25:24 Result Notes None recorded. Problems Name Problem SNOMED Code Status Onset Date Resolution Date Notes Provider Name and Address Organization Details Recorded Time Abdomina l pain 35440485 Completed 201108/19/2012 Abdomina l Pain;Rec orded Elsewher e: No Locat ion: [facility] S ource: EHR Circle Shear Operator yolie: N Practi ce ID: 0001 Bassam lable Time: 11:00:00 AM Not Available [facility] 0 21:45:44 Female genital organ symptoms [id number] Completed 201108/19/2012 Unspecif ied symptom associat ed with female genital organs;R ecorded Elsewher e: No Locat ion: [facility] S ource: EHR Circle Shear Operator yolie: N Practi ce ID: 0001 Bassam lable Time: 11:00:00 AM Not Available [facility] 0 21:45:44 Speciali zed medical examinat ion Completed 201202/02/2021 Gynecolo gical Examinat ion;Marshall rded Elsewher e: No Locat ion: [facility] S ource: EHR Circle Shear Operator yolie: N Practi ce ID: 0001 Bassam lable Time: 09:15:00 AM [facility] 1 15:13:[address] Concept Completed 201502/02/2021 Encntr for general adult medical exam w/o abnormal findings ;Recorde d Elsewher e: No Locat ion: [facility] S ource: EHR Circle Shear Operator yolie: N Practi ce ID: 0001 Bassam lable Time: 09:30:00 AM Teri Nichole [facility] 1 15:13:00 Abnormal uterine bleeding [id number] 100 Completed 201602/02/2021 Dysfunct ional uterine bleeding ;Recorde d Elsewher e: No Locat ion: [facility] S ource: EHR Circle Shear Operator yolie: N Practi ce ID: 0001 Bassam lable Time: 10:30:00 AM Teri Nichole [facility] 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 1 15:13:02 Pregnanc y test negative [id number] Completed 201802/02/2021 Encounte r for pregnanc y test, result negative ;Recorde d Elsewher e: No Locat ion: Chidi andres [facility] S ource: EHR Circle Shear Operator yolie: N Practi ce ID: 0001 Bassam lable Time: 08:30:00 AM Teri Nichole [facility] 1 15:12:32 Right lower quadrant pain [id number] Completed 201008/19/2012 Abdomina l pain, right lower quadrant ;Recorde d Elsewher e: No Locat ion: Chidi andres [facility] S ource: EHR Circle Shear Operator yolie: N Practi ce ID: 0001 Bassam lable Time: 09:30:00 AM Not Available [facility] 0 21:45:44 Vaginiti s and vulvovag initis Completed 201008/19/2012 Vaginiti s;Record ed Elsewher e: No Locat ion: Janellledyll mckenna [facility] S ource: EHR Circle Shear Operator yolie: N Practi ce ID: 0001 Bassam lable Time: 09:30:00 AM Not Available [facility] 0 21:45:44 Furuncle [id number] Completed 201702/02/2021 Boil;Rec orded Elsewher e: No Locat ion: Janellledyll mckenna [facility] S ource: EHR Circle Shear Operator yolie: N Césarti ce ID: 0001 Bassam lable Time: 03:00:00 PM Teri cid [facility] 15:12:11 Procedur e on genitour inary system Completed 201802/02/2021 Encounte r for surgical aftercar e followin g surgery on the genitour inary system;R ecorded Elsewher e: No Locat ion: Chidi [facility]res [facility] S ource: EHR Circle Shear Operator yolie: N Césarti ce ID: 0001 Bassam lable Time: 10:45:00 AM Teri Nichole [facility] 15:12:37 Postoper ative care Completed 201802/02/2021 Encounte r for surgical aftercar e followin g surgery on the genitour inary system;R ecorded Elsewher e: No Locat ion: Juanmallory mckenna [facility] S ource: EHR Circle Shear Operator yolie: N Césarti ce ID: 0001 Bassam lable Time: 10:45:00 AM Teri Nichole [facility] 15:12:40 Pain in female genitali a Completed 201802/02/2021 Dysmenor taylor;Rec orded Elsewher e: No Locat ion: Juan mckenna [facility] S ource: EHR Circle Shear Operator yolie: N Césarti ce ID: 0001 Bassam lable Time: 11:00:00 AM Teri Nichole [facility] 15:12:01 Finding of menstrua l bleeding Completed 201802/02/2021 Menorrha phi;Marshall rded Elsewher e: No Locat ion: [facility] S ource: EHR Circle Shear Operator yolie: N Césarti ce ID: 0001 Bassam lable Time: 03:15:00 PM Teri Nichole [facility] 15:12:08 Pelvic and perineal pain [id number] Completed 201802/02/2021 Pelvic and perineal pain;Rec orded Elsewher e: No Locat ion: [facility]idi [facility] S ource: EHR Circle Shear Operator yolie: N Practi ce ID: 0001 Bassam lable Time: 08:30:00 AM [facility] 15:12:28 Screenin g for malignan t neoplasm of cervix Completed 201008/19/2012 Screenin g for malignan t neoplasm s of the cervix;R ecorded Elsewher e: No Locat ion: Chidi [facility]res [facility] S ource: EHR Circle Shear Operator yolie: N Practi ce ID: 0001 Bassam lable Time: 09:00:00 AM [facility] 15:12:49 Breast lump [id number] Completed 201402/02/2021 Breast Lump Or Mass;Rec orded Elsewher e: No Locat ion: Chidi [facility]res [facility] S ource: EHR Circle Shear Operator yolie: N Practi ce ID: 0001 Bassam lable Time: 10:30:00 AM [facility] 15:12:45 Finding of body mass index [id number] Completed 201802/02/2021 Body mass index (BMI) 40.0-44. 9, adult;Re corded Elsewher e: No Locat ion: [facility] S ource: EHR Circle Shear Operator yolie: N Practi ce ID: 0001 Bassam lable Time: 11:00:00 AM [facility] 15:12:04 Adult health examinat ion Completed 201302/02/2021 ROUTINE MEDICAL EXAM;Rec orded Elsewher e: No [facility]: E[facility] Circle Shear Operator yolie: N Practi ce ID: 0001 Bassam lable Time: 09:30:00 AM [facility] 04/14/202 1 15:11:52 Abscess of vulva [id number] Completed 201802/02/2021 Abscess of vulva;Re corded Elsewher e: No Locat ion: [facility] mckenna [facility] S ource: EHR Circle Shear Operator yolie: N Practi ce ID: 0001 Bassam lable Time: 01:30:00 PM [facility] 1 15:11:49 Clinical finding Completed 201602/02/2021 Obesity; Recorded Elsewher e: No Locat ion: [facility] S ource: EHR Circle Shear Operator yolie: N Practi ce ID: 0001 Bassam lable Time: 10:30:00 AM [facility] 1 15:12:17 Screenin g for malignan t neoplasm of rectum Completed 201802/02/2021 Encounte r for screenin g for malignan t neoplasm of rectum;R ecorded Elsewher e: No Locat ion: [facility] S ource: EHR Circle Shear Operator yolie: N Practi ce ID: 0001 Bassam lable Time: 11:00:00 AM [facility] 1 15:12:56 Speciali zed medical examinat ion Completed 201008/19/2012 Gynecolo gical Examinat ion;Marshall rded Elsewher e: No Locat ion: [facility] S ource: EHR Circle Shear Operator yolie: N Practi ce ID: 0001 Bassam lable Time: 09:00:00 AM Teri Nichole [facility] 1 15:13:07 Contrace ption care manageme nt Completed 201008/19/2012 Other specifie d contrace ptive manageme nt;Recor ded Elsewher e: No Locat ion: [facility] S ource: EHR Circle Shear Operator yolie: N Practi ce ID: 0001 Bassam lable Time: 09:30:00 AM Not Available [facility] 0 21:45:47 Irregula r periods [id number] Completed 201002/02/2021 Irregula r menstrua l cycle;Pr actice ID: 0001 [facility] 15:12:25 Screenin g for malignan t neoplasm of cervix Completed 201102/02/2021 Pap Smear;Pr actice ID: 0001 [facility] 15:12:49 Steriliz ation procedur e Completed 201802/02/2021 Encounte r for steriliz ation;Pr actice ID: 0001 [facility] 15:13:20 Problem Notes None recorded. Procedures Surgical History Date Name Laterality Status Provider Name and Address Organization Details Recorded Time 09/25/20 23 Date of Last Mammogram completed Naida Gonzalez [facility] 11/28/2023 09:34:19 09/20/20 21 TOTAL HYSTERECTOMY, LAPAROSCOPIC, WITH BILATERAL SALPINGO-OOPHORE CTOMY (SURG) completed Sobeida Summers [facility] 09/21/2021 10:30:14 07/18/20 21 Endometrial Biopsy completed Geoffrey Mcclendon MD [address], [place], [address], [facility] 07/18/2021 18:01:50 02/03/20 21 Date of Last Pap Smear completed Teri Nichole [facility] 02/02/2021 15:36:43 12/18/19 05 Caesarean Section completed Teri Nichole [facility] 07/18/2021 16:03:49 Partial Hysterectomy completed Jo Ann Moreira [facility] 01/23/2022 09:27:00 Endometrial Ablation completed Raquel Mcleod [facility] 01/12/2021 14:51:57 Laparoscopy completed Raquel Mcleod [facility] 01/12/2021 14:52:03 ligation of bilateral fallopian tubes completed [facility] 01/12/2021 14:52:14 Carpal tunnel surgery completed [facility] 01/12/2021 14:52:20 Tubal Ligation completed [facility] 02/02/2021 15:54:37 Caesarean Section completed [facility] 02/02/2021 15:54:37 Orthopedic Surgery completed [facility] 02/02/2021 15:54:37 Imaging Results Imaging Date Name Status LastModified by Organiz ation Details LastModified Time 09/25/2023 MAMMO, screening, bilateral completed [address] [facility] [address], [place], [address], 11/28/2023 10:01:21 11/25/2024 imaging/diagno stic result completed [facility] [address], [place], [address], 11/25/2024 17:25:24 Procedure Notes None recorded. Medical Equipment None Reported. Allergies No known drug allergies Medications Name Sig Start Date Stop Date Status Note LastModified by Organization Details LastModified Time Prescript ion - Prior Authoriza tion Request 11/28 completed Not Available Not Available Not Available cyclobenz aprine 10 mg tablet TAKE 1 TABLET BY MOUTH EVERY NIGHT AT BEDTIME 11/28 completed Not Available Not Available Not Available amoxicill in 500 mg capsule TAKE 1 CAPSULE BY MOUTH EVERY 12 HOURS 11/28 completed Not Available Not Available Not Available furosemid e 40 mg tablet TAKE 1 TABLET BY MOUTH DAILY active Not Available Not Available No t Available furosemid e 10 mg/mL injection solution inject 2 millilit er by intraven ous route every day slowly 02/02 completed Prescrib ed Elsewher e: Yes Loca tion: [facility] Sesar odify By: vineet flower DateTime : 06/15/20 16 09:30:00 AM Not Available Not Available Not Available promethaz ine-DM 6.25 mg-15 mg/5 mL oral syrup TAKE 5 TO 10 ML BY MOUTH EVERY 6 HOURS FOR 5 DAYS NEEDED 07/04 completed Not Available Not Available Not Available doxycycli ne hyclate 100 mg capsule TAKE 1 CAPSULE BY MOUTH TWICE DAILY FOR 5 DAYS 05/24 completed Not Available Not Available Not Available atorvasta tin 20 mg tablet TAKE 1 TABLET BY MOUTH DAILY active Not Available Not Available No t Available azithromy remedios 250 mg tablet TAKE 2 TABLETS BY MOUTH FOR 1 DAY THEN TAKE 1 TABLET BY MOUTH DAILY FOR 4 DAYS 05/24 completed Not Available Not Available Not Available fluconazo le 150 mg tablet TAKE 1 TABLET BY MOUTH TODAY THEN REPEAT DOSE IN 72 HOURS. active Not Available Not Available No t Available valacyclo vir 1 gram tablet TAKE 1 TABLET BY MOUTH EVERY 12 HOURS FOR 10 DAYS active Not Available Not Available No t Available hydrocodo ne 5 mg-acetam inophen 325 mg tablet take 2 tablets by oral route 2 hours before procedur e 09/26 completed Not Available Not Available Not Available prednison e 20 mg tablet TAKE 1 TABLET BY MOUTH TWICE DAILY FOR 7 DAYS 05/16 completed Not Available Not Available Not Available sertralin e 100 mg tablet TAKE 1 TABLET BY MOUTH EVERY DAY active Not Available Not Available No t Available phentermi ne 15 mg capsule TAKE 1 CAPSULE BY MOUTH EVERY DAY 11/28 completed Not Available Not Available Not Available penicilli n V potassium 500 mg tablet TAKE 2 TABLETS BY MOUTH TWICE DAILY FOR 7 DAYS 05/24 completed Not Available Not Available Not Available metronida zole 500 mg tablet TAKE 1 TABLET BY MOUTH EVERY 12 HOURS FOR 7 DAYS active Not Available Not Available No t Available sulfameth oxazole 800 mg-trimet hoprim 160 mg tablet TAKE 1 TABLET BY MOUTH TWICE DAILY FOR 10 DAYS 07/06 completed Not Available Not Available Not Available tramadol 50 mg tablet 11/28 completed Not Available Not Available Not Available phentermi ne 30 mg capsule TAKE 1 CAPSULE BY MOUTH EVERY DAY 11/28 completed Not Available Not Available Not Available Celebrex 200 mg capsule take 1 capsule by oral route the night before and 2 capsules by mouth the morning of procedur e 04/03 completed Prescrib ed Elsewher e: No Locat ion: [facility] odify By: adrianna Encounte r DateTime : 02/25/20 19 10:15:00 AM Not Available Not Available Not Available Zofran 8 mg tablet take 1 tablet by oral route 2 hours before procedur e 02/25 completed Prescrib ed Elsewher e: No Locat ion: [facility] odify By: adrianna Katiete r DateTime : 02/25/20 19 10:15:00 AM Not Available Not Available Not Available Metrogel Vaginal 0.75 % (37.5 mg/5 gram) insert 1 applicat orful by vaginal route for 5 nights at bedtime 11/23 completed Prescrib ed Elsewher e: No Locat ion: [facility] odify By: jacqui solisunter DateTime : 01/27/20 17 02:53:04 PM Not Available Not Available Not Available dicyclomi ne 20 mg tablet TAKE 1 TABLET BY MOUTH EVERY 8 HOURS NEEDED 05/24 completed Not Available Not Available Not Available meclizine 25 mg tablet TAKE 1 TABLET BY MOUTH EVERY 6 HOURS NEEDED 05/24 completed Not Available Not Available Not Available benzonata te 100 mg capsule TAKE 1 CAPSULE BY MOUTH THREE TIMES DAILY FOR 15 DAYS NEEDED 11/28 completed Not Available Not Available Not Available nortripty line 10 mg capsule take 2 capsule by oral route 4 times every day 08/20 completed Prescrib ed Elsewher e: Yes Loca tion: [facility] odify By: reagan montalvo DateTime : 08/19/20 12 08:30:00 AM Not Available Not Available Not Available neomycin- polymyxin -dexameth 3.5 mg/mL-10, 000 unit/mL-0 .1% eye drops INSTILL ONE DROP INTO THE LEFT EYE TWICE A DAY FOR 5 DAYS 02/02 completed Not Available Not Available Not Available halobetas ol propionat e 0.05 % topical ointment 07/06 completed Not Available Not Available Not Available fluoromet holone 0.1 % eye drops,elio pension SHAKE LIQUID AND INSTILL 1 DROP IN RIGHT EYE THREE TIMES DAILY 05/24 completed Not Available Not Available Not Available hydrochlo rothiazid e 12.5 mg capsule take 2 capsule by oral route every day 06/25 completed Prescrib ed Elsewher e: Yes [facility] By: [email or web address] solisuntjenaro DateTime : 08/19/20 12 08:30:00 AM Not Available Not Available Not Available diclofena c sodium 75 mg tablet,de layed release TAKE 1 TABLET BY MOUTH TWICE DAILY 05/24 completed Not Available Not Available Not Available hydroxyzi ne HCl 25 mg tablet TAKE 1 TABLET BY MOUTH THREE TIMES DAILY active Not Available Not Available No t Available lotepredn ol etabonate 0.5 % eye drops,elio pension SHAKE LIQUID AND INSTILL 1 DROP IN LEFT EYE THREE TIMES DAILY active Not Available Not Available No t Available diazepam 10 mg tablet take 1 tablet by oral route one hour before procedur e 04/03 completed Prescrib ed Elsewher e: No Locat ion: [facility] odify By: [email or web address] Carie almeida DateTime : 02/25/20 19 10:15:00 AM Not Available Not Available Not Available methylpre dnisolone 4 mg tablets in a dose pack FOLLOW PACKAGE DIRECTIO NS 05/24 completed Not Available Not Available Not Available Vitamin D2 1,250 mcg (50,000 unit) capsule take 1 capsule by oral route every week 01/13 completed Prescrib ed Elsewher e: No Locat ion: [facility] odify By: filomena solisuntjenaro DateTime : 12/10/19 18 09:32:50 AM Not Available Not Available Not Available ondansetr on 4 mg disintegr ating tablet TAKE 1 TABLET BY MOUTH EVERY 6 HOURS NEEDED. 07/06 completed Not Available Not Available Not Available sertralin e 50 mg tablet TK 1 T PO QD 02/02 completed Not Available Not Available Not Available doxycycli ne hyclate 100 mg tablet take 1 tablet by oral route 2 times every day 02/02 completed Prescrib ed Elsewher e: No Locat ion: [facility] odify By: [email or web address] Encounte r DateTime : 05/14/20 19 01:30:00 PM Not Available Not Available Not Available phentermi ne 37.5 mg capsule Take 1 capsule( s) every day by oral route. active Not Available Not Available No t Available amoxicill in 875 mg-potass ium clavulana te 125 mg tablet TAKE 1 TABLET BY MOUTH TWICE DAILY FOR 7 DAYS 11/28 completed Not Available Not Available Not Available neomycin 3.5 mg/g-poly myxin B 10,000 unit/g-de xameth 0.1 % eye oint APPLY SMALL AMOUNT IN LEFT EYE TWICE DAILY active Not Available Not Available No t Available iron 18 mg tablet 01/13 completed Prescrib ed Elsewher e: Yes Loca tion: [facility] odify By: filomena flower DateTime : 12/25/19 18 01:30:00 PM Not Available Not Available Not Available azithromy remedios 500 mg tablet TAKE 1 TABLET BY MOUTH DAILY FOR 3 DAYS 05/24 completed Not Available Not Available Not Available escitalop blas 10 mg tablet TAKE 1 TABLET BY MOUTH DAILY 08/13 completed Not Available Not Available Not Available escitalop blas 20 mg tablet TAKE 1 TABLET BY MOUTH DAILY active Not Available Not Available No t Available topiramat e 50 mg tablet TAKE 1 TABLET BY MOUTH EVERY DAY 2024 active Not Available Not Available Not Avai lable Ortho-Cyc carey (28) 0.25 mg-35 mcg tablet take 1 tablet by oral route every day 08/21 completed Prescrib ed Elsewher e: No Locat ion: [facility] odify By: [email or web address] Katiete r DateTime : 08/21/20 11 04:45:44 PM Not Available Not Available Not Available sertralin e 02/02 completed Not Available Not Available Not Available diclofena c sodium 02/02 completed Not Available Not Available Not Available iron active Not Available Not Availa ble Not Available furosemid e 02/02 completed Not Available Not Available Not Available potassium active Not Available Not Barb ilable Not Available multivita min active Not Available Not Available Not Available fenofibra te 05/16 completed Not Available Not Available Not Available fenofibra te nanocryst allized 145 mg tablet TAKE 1 TABLET BY MOUTH EVERY DAY 11/28 completed Not Available Not Available Not Available diclofena c epolamine 1.3 % transderm al 12 hour patch 07/12 completed Not Available Not Available Not Available nebivolol 10 mg tablet TAKE 1 TABLET BY MOUTH EVERY DAY active Not Available Not Available No t Available Lo Loestrin Fe 1 mg-10 mcg (24)/10 mcg (2) tablet take 1 tablet by oral route every day 08/02 completed Prescrib didier andres: Suellen Locat ion: [facility] odify By: soila tz Encou nter DateTime : 07/20/20 11 09:30:00 AM Not Available Not Available Not Available Ozempic 0.25 mg or 0.5 mg (2 mg/1.5 mL) subcutane ous pen injector Inject 0.4 mg every week by subcutan eous route. 05/24 completed Not Available Not Available Not Available Clenpiq 10 mg-3.5 gram-12 gram/160 mL oral solution 05/24 completed Not Available Not Available Not Available Wegovy 2.4 mg/0.75 mL subcutane ous pen injector active Not Available Not Available Not Available Wegovy 1.7 mg/0.75 mL subcutane ous pen injector INJECT 1.7 MG UNDER THE SKIN ONCE A WEEK 11/28 completed Not Available Not Available Not Available Wegovy 1 mg/0.5 mL subcutane ous pen injector Inject 1 mg every week by subcutan eous route. 11/28 completed Not Available Not Available Not Available Wegovy 0.5 mg/0.5 mL subcutane ous pen injector INJECT 0.5 MG EVERY WEEK UNDER THE SKIN 11/28 completed Not Available Not Available Not Available Mounjaro 7.5 mg/0.5 mL subcutane ous pen injector INJECT 7.5MG BY SUBCUTAN EOUS ROUTE WEEKLY 09/26 completed Not Available Not Available Not Available Mounjaro 5 mg/0.5 mL subcutane ous pen injector INJECT 5MG UNDER THE SKIN ONCE WEEKLY 09/26 completed Not Available Not Available Not Available Mounjaro 2.5 mg/0.5 mL subcutane ous pen injector INJECT 2.5 MG UNDER THE SKIN ONCE A WEEK 09/26 completed Not Available Not Available Not Available Vitals Date Recorded Body height Body mass index (BMI) Body weight Systolic blood pressure Diastolic blood pressure Provider Name and Address Organization Details Last Updated DateTime 03/24/2023 165.1 cm 35.3 kg/m2 42026.58 g 126 mm[Hg] 83 mm[Hg] MAURI JULIAN [facility] 3 10:12:04 Date Recorded Body height Body mass index (BMI) Body weight Systolic blood pressure Diastolic blood pressure Provider Name and Address Organization Details Last Updated DateTime 04/28/2023 165.1 cm 35.1 kg/m2 80377.99 g 123 mm[Hg] 69 mm[Hg] Jo Ann [facility] 3 10:18:40 Date Recorded Body height Body mass index (BMI) Body weight Systolic blood pressure Diastolic blood pressure Provider Name and Address Organization Details Last Updated DateTime 05/25/2023 165.1 cm 34.9 kg/m2 93486.4 g 109 mm[Hg] 75 mm[Hg] [facility] 3 14:05:56 Date Recorded Body height Body mass index (BMI) Body weight Systolic blood pressure Diastolic blood pressure Provider Name and Address Organization Details Last Updated DateTime 11/28/2023 165.1 cm 34.9 kg/m2 14251.4 g 114 mm[Hg] 79 mm[Hg] Naida Gonzalez [facility] 4 09:38:36 Date Recorded Body height Body mass index (BMI) Body weight Systolic blood pressure Diastolic blood pressure Provider Name and Address Organization Details Last Updated DateTime 08/14/2024 165.1 cm 36.1 kg/m2 00616.54 g 131 mm[Hg] 80 mm[Hg] Camille Sanchez [facility] 16:10:56 Social History Question Answer Notes LastModified by Organizat ion Details LastModified Time Tobacco Smoking Status Never Smoker Andra cid [facility] 05/25/2023 13:49:21 Do You Have An Advance Directive? No Information not available 02/02/2021 What Is Your Level Of Alcohol Consumption? Occasional Information not available 07/06/2021 Are You Blind Or Do You Have Difficulty Seeing? No Information not available 02/02/2021 What Is Your Level Of Caffeine Consumption? Occasional Information not available 05/02/2021 How Much Tobacco Do You Chew? None Information not available 02/02/2021 In The 14 Days Before Symptom Onset, Have You Had Close Contact With A Laboratory-confir med COVID-19 While That Case Was Ill? No Information not available 02/02/2021 In The 14 Days Before Symptom Onset, Have You Had Close Contact With A Person Who Is Under Investigation For COVID-19 While That Person Was Ill? No Information not available 02/02/2021 Have You Been To An Area Known To Be High Risk For COVID-19? No Information not available 02/02/2021 Are You Deaf Or Do You Have Serious Difficulty Hearing? No Information not available 02/02/2021 What Type Of Diet Are You Following? REGULAR Information not available 02/02/2021 What Is The Highest Grade Or Level Of School You Have Completed Or The Highest Degree You Have Received? 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 Yes Information not available 02/02/2021 Do You Use Protection During Sex? Always [email or web address] Information not available 08/14/2024 Do You Use Your Seat Belt Or Car Seat Routinely? Yes Information not available 02/02/2021 Do You Have Smoke And Carbon Monoxide Detectors In Your Home? Yes Information not available 02/02/2021 How Much Tobacco Do You Smoke? No Information not available 02/02/2021 Do You Feel Stressed (tense, Restless, Nervous, Or Anxious, Or Unable To Sleep At Night)? [id number] Information not available 02/02/2021 Do You Use Any Illicit Or Recreational Drugs? No Information not available 02/02/2021 Do You Use Sunscreen Routinely? No Information not available 02/02/2021 Have You Used IV Drugs? No Information not available 02/02/2021 Sex: Unknown Functional Status Question Answer Note LastModified by Organizat ion Details LastModified Time Are you able to walk? YESWOREST Information not available 02/02/2021 What is your exercise level? Occasional Information not available 02/02/2021 Mental Status None recorded. Family History Relationship Description Onset Age of this Age Resolved Age Notes LastModified by Organization Details LastModified Time Paternal Aunt Malignant tumor of pharynx [email or web address] Not available 2023 16:03:59 Paternal Aunt Malignant tumor of cervix [email or web address] Not available 2022 14:06:01 Paternal Uncle Malignant tumor of pharynx Not available 2023 16:03:59 Sister Cyst of ovary [email or web address] Not available 2023 16:03:59 Paternal Grandmother Diabetes mellitus [email or web address] Not available 2022 14:06:01 Maternal Grandmother Osteoporosis Not available 05/25/2023 14:06:01 Father Heart disease [email or web address] Not available 2022 14:06:01 Father Diabetes mellitus [email or web address] Not available 2022 14:06:01 Medical History Condition Response Allergies (Food, seasonal, environmental ) N Other N Drug/Latex Allergies/Reactions N Breast Cancer N Blood Transfusion N Lung Disease N Dermatologic Disorders N Defects or Inherited Disease N Breast Problem N Gestational Diabetes N Hematologic disorders N Anesthesia Complications N History of STI N Deep Vein Thrombosis N Polycystic ovary syndrome Y Anxiety Disorder Y Autoimmune disease N Arthritis Y Polyps N Infertility N History of abnormal pap Y Acid Reflux (GERD) N Cancer N Varicosities N Stroke N Neurologic/Epilepsy N Endometriosis N High Cholesterol N Headaches N Fibromyalgia N Kidney Disease N Heart Problems N Thyroid Problems N Kidney or Bladder Problems N GI Problems N Eating Disorder N Anemia N Art (IVF or FET) N Psychiatric Illness N Ovarian Cancer N Diabetes N Pulmonary (TB, Asthma) N Hepatitis/Liver Disease N No Past Medical History N Eczema N Urinary Tract Infection N Abuse/Domestic Violence N Asthma N Trauma/Violence N Depression/ depression Y Heart Disease N Pre-Eclampsia N Hypertension Y Osteoporosis N Thrombophilias N Gynecological History Statement/Question Response Abnormal Pap Y Date of Last Mammogram 09/25/2023 Was last menstrual period normal Y STIs/STDs N HPV Vaccine N Current Control Method Hysterectom y Date of Last Colonoscopy Sexually Active? Y Menses Monthly N Date of Last Pap Smear 02/02/2021 Sexual Problems? N Desired Control Method LMP Unknown Obstetrics History GPAL:G 1 P 1 0 0 1 Type Value Full Term 1 Living 1 Total 1 Past Encounters Encounter ID Performer Location Encounter Start Date Encounter Closed Date Diagnosis/Indication Diagnosis SNOMED-CT Code Diagnosis ICD10 Code Diagnosis Note [id number] [facility] [address] [address] 02/02/2021 15:38:27 02/02/2021 16:25:56 Gynecologic examination 44099735 Z01.419 Suggested Calcium with Vitamin D 1200-1500m g daily. Patient advised to get an annual flu shot in the fall and she could obtain at [facility] or [facility]. Also to obtain TDap vaccinatio n if you have not had one in the last 10 years. Recommend yearly mammograms . Encouraged monthly self breast exams. Encourage safe sexual practices, to use condoms and limit partners if not already in a monogamous relationsh ip. Engage in daily exercise of low impact aerobic exercise 45-60 minutes 4-5 times weekly. Avoid tobacco and illicit drugs as well as using moderation with alcohol intake less than 1-2 8 oz beverages daily. This lifestyle behavior pattern will lead to less health conditions and longer life span. If BMI greater than 25 weight watchers or dietary consult advised. All questions have been answered. Patient appears to understand informatio n, but if you have any questions please call or respond to this email. 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 Sexually t ransmitted infectious disease 3157552 A64 R/P x 6mos from 12/03/2020 Spouse admitted to being bisexual and having relationsh ip outside of theirs. She has since caught him in multiple lies & found medication that is used to treat for HIV. She cannot get any informatio n out of her spouse in regards to these things. We have decided to r/p her STD screening in 6mos from last 12/03/2020 to ensure it remains neg. She is in agreement. Screening mammography 24 583225 Z12.31 [id number] Geoffrey Mcclendon MD [place] [address],[place] [address] 05/02/2021 10:39:24 05/02/2021 11:37:04 Mass of ovary 246307807 R19.09 this patient is a 46-year-ol d female presents for follow-up from the ER. She was noted to have an enlarged ovary on a CT scan. She has no pelvic pain. She does continue to bleed very heavily. She is status post endometria l ablation. Her bleeding affects her quality of life and activities of daily living. We discussed treatment options. She will have a pelvic ultrasound and return to discuss ovary and treatment options for menorrhagi a. Considerin g ablation. It would be a repeat. Menorrhagia 998042948 N9 2.0 Dysmenorrhea 214710173 N 94.6 [id number] Andra Nichole [place] [address] [address] 05/10/2021 10:14:25 05/10/2021 10:58:02 Menorrhagia 103401721 N92.0 [id number] Geoffrey Mcclendon MD [place] [address] [address] 05/13/2021 11:06:16 05/13/2021 11:59:30 Menorrhagia 448033324 N92.0 This patient is a 46-year-ol d female presents for follow-up on ultrasound . She is enlarged and uterus. She has had endometria l ablation in the past. Yet, she continues to bleed very heavily. She has accidents, she has blood on her bedding and clothing. She has situations at work that are affecting her work. She would like definitive surgical treatment. We agreed to that. I explained the procedure to her in detail. We talked about total laparoscop ic hysterecto my in the technical approach. We agreed to remove her ovaries. We will schedule total laparoscop ic hysterecto my and bilateral salpingo-o ophorectom y. This is a complex topic in we decided to do surgery. [id number] Geoffrey Mcclendon MD [place] [address],[place] [address] 07/06/2021 15:05:19 07/06/2021 16:26:38 Menorrhagia 172397363 N92.0 this patient is a 46-year-ol d female with severe menorrhagi a. We agreed to perform total laparoscop ic hysterecto my bilateral salpingect idris. She understand s the risks, benefits, and alternativ es. She has completed the informed consent process and is ready to proceed. [id number] Geoffrey Mcclendon MD [place] [address],[place] [address] 07/18/2021 15:53:29 07/19/2021 11:14:17 Screening procedure 43241428 Z13.9 Menorrhagia 963623383 N9 2.0 endometria l biopsy was performed. She tolerated the procedure well. We will follow-up on the results. Surgery needs to be resubmitte d for authorizat ion.. [id number] Geoffrey Mcclendon MD [place] [address],[place] [address] 09/13/2021 09:30:41 09/13/2021 11:07:39 Menorrhagia 172288536 N92.0 this patient is a 46-year-ol d female with severe menorrhagi a. We agreed to perform total laparoscop ic hysterecto my bilateral salpingect idris. She understand s the risks, benefits, and alternativ es. She has completed the informed consent process and is ready to proceed. [id number] Geoffrey Mcclendon MD [place] [address],[place] [address] 09/22/2021 14:35:08 09/22/2021 15:50:17 Dehiscence of external surgical incision wound [id number] T81.31XA [id number] Geoffrey Mcclendon MD [place] [address],[place] [address] 09/23/2021 09:14:16 09/23/2021 09:15:12 [id number] Geoffrey Mcclendon MD [place] [address],[place] [address] 09/26/2021 09:37:28 09/26/2021 11:38:40 Postoperative care [id number] Z48.89 This patient is a 46-year-ol d female presents for postop follow-up. She is 1 week postop from a total laparoscop ic hysterecto my with bilateral salpingect idris. She has no complaints . She denies any nausea, vomiting, fever, chills. She denies any chest pain shortness of breath. She denies incision complicati ons. They are clean dry and intact. She will follow up as needed. [id number] Geoffrey Mcclendon MD [place] [address],[place] [address] 01/23/2022 09:16:58 01/23/2022 09:54:53 Lesion of skin of breast [id number] 43748 L98.8 this patient is a 46-year-ol d female who presents for breast lesion. Over the weekend she had a firm hard red mass at the skin surface on the left breast inferiorly . She has been on antibiotic s for an ear infection. This lesion has improved since that time. Was examined today. It is relatively soft. There is a nodule and the skin that may contain some fluid. There is no redness, minimal or no induration . It is nontender. We agreed to observe this nodule and consider antibiotic s or drainage if it worsens. [id number] MD [facility] Block [address],[place] [address] 02/21/2022 14:27:25 02/22/2022 16:11:25 Obesity 118701006 E66.9 This patient is a 47-year-ol d female with class 3 obesity. Spent 1 hour together. Over 50% was counseling . We talked about weight management . We talked about energy consumptio n. We talked about energy expenditur e. We perform body compositio n testing and discuss those results. We discussed the danger of excessive visceral body fat. We agreed to dietitian consult. We understand that she has a sleep study schedule. She is also in the middle of a cardiac evaluation will have an echocardio gram soon. She had a stress test with no chest pain her abnormalit ies were EKG. Her exercise tolerance was poor over. We agreed to get hemoglobin A1c. Most of her other labs have been performed. She is treated for hyperchole sterolemia and hypertrigl yceridemia she return when a cardiology consult is completed. We will know what our treatment options are at that time. Will consider her treatment options. [id number] Geoffrey Mcclendon MD [place] [address],[facility] [place] [address] 05/02/2022 14:50:58 05/02/2022 16:24:49 Obesity 524814063 E66.9 This patient is a 47-year-ol d female presents for follow-up on weight management . We talked about medication s. She had a cardiology consult and she got cleared for the use of phentermin e. She did not get hemoglobin A1c that we had previously talked about. She is going to get it drawn today. This is really just about seeing if she could use treatment for pre diabetes or type 2 diabetes. We could use medication s there that are anorectics . We agreed to go ahead with the phentermin e. We will keep the type 2 diabetes medication s in mind. We will also see with phentermin e if she is covered for the weight loss medication s. Spent more than 20 minutes face-to-fa ce. More than 50% was counseling . Medication s were prescribed . She understand s the risks, benefits, and alternativ es. She was informed side effects. [id number] MD Sj Block [address],[facility] [place] [address] 05/16/2022 14:34:10 05/16/2022 15:19:10 Obesity 529320789 E66.9 This patient is a 47-year-ol d female who presents for follow-up on weight management . She has had diarrhea for almost 2 weeks. She was in [place]. She developed a gastroente ritis. She is being evaluated. She got labs drawn and a stool sample. She had to delay starting phentermin e. She has been taking it for about a week. She is tolerating it well. It is a little difficult to know if there are any side effects due to GI symptoms. We agreed to 2 more weeks on the medication of carol forbes. She has enough medication for 2 weeks. We spent 20 minutes face-to-fa ce. Talked about her diet. She is unable to see the dietitian. We discussed exercise briefly. She will return in 2 weeks. We will discuss nutrition at next visit. [id number] Geoffrey Mcclendon MD [place] [address],[place] [address] 05/30/2022 16:48:05 05/31/2022 15:13:58 Obesity 963371860 E66.9 This patient is a 47-year-ol d female who has responded very well to phentermin e. Her appetite is greatly diminished on 15 mg. She like to stay at this dose. 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 She has met dietitian. She has quantifyin g her calories. She says her calories are coming in around about 1000. She has no untoward side effects. She denies any shortness of breath, chest palpitatio ns, chest pain. She does some dry. She has got a GI concern. She is seeing Gastroente rology for chronic diarrhea. Medication was prescribed . She is taking 50 topiramate a day and phentermin e 15 mg a day. We spent more than 20 minutes face-to-fa ce. More than 50% was counseling . [id number] Geoffrey Mcclendon MD [place] [address],[facility] [place] [address] 07/04/2022 16:46:16 07/05/2022 14:44:58 Prediabetes [id number] R73.03 This patient is a 47-year-ol d female who presents for weight management follow-up. We talked about her current weight loss which is impressive . She is exercising . She has seen the dietitian. She is refining her lifestyle changes. We talked about her medication s. I believe that she should start the GLP 1 agonist. The new 1 is the most effective medication out therapy for weight loss but she is also prediabeti c. I think this is an opportunit y to use her prediabete s diagnosis to effectivel y treat her pre diabetes but also with the added benefit of significan t weight loss. She was given a prescripti on for the medication . We talked about the side effects. We talked about administra tion of the drug. Talked about precaution s. She will return in 3-4 weeks. We spent over 20 minutes face-to-fa ce. More than 50% was counseling . [id number] Geoffrey Mcclendon MD [place] [address],[place] [address] 08/01/2022 16:29:31 08/01/2022 18:00:26 Prediabetes 453413322 R73.03 THIS PATIENT IS A 47-YEAR-OL D female presents for follow-up on weight management . Patient started the new G LP 1 agonist about 3 weeks ago. She lost 5 lb in that time. She denies any untoward side effects. We agreed to go to the next highest dose. It was prescribed . We reviewed side effects again. Talked about her activity level and diet. We spent over 20 minutes face-to-fa ce. She will follow-up and 4 weeks. More than 50% of our time together was counseling . [id number] Geoffrey Mcclendon MD [place] [address],[place] [address] 08/29/2022 15:41:48 08/29/2022 18:09:48 Prediabetes [id number] R73.03 This patient is a 47-year-ol d female who presents for follow-up on weight management . She continues to lose weight. She had some recent slight regain. Patient has not been to a press with the new G LP 1 agonist. We agreed to move to the next highest dose. We spent over 20 minutes face-to-fa ce. More than 50% was counseling . It was primarily medical management and discussion of the available medical treatments and found her current side effects. We talked about activity. She says her knees are feeling better her sciatica is better. She feels like she may be able to get more active. Her diet is going well. [id number] Geoffrey Mcclendon MD [place] [address] [address] 09/26/2022 16:22:35 09/26/2022 17:00:37 Prediabetes [id number] R73.03 this patient is a 47-year-ol d female presents for follow-up on weight management . She was unable to get the DLP 1 agonists, the new 1. we went back to phentermin e for couple of weeks. She did lose 3 lb in that time. She was not very sensitive to the new G LP 1 agonist. We talked about treating her prediabete s. We talked about Ozempic. We understand there is a savings card for Ozempic that is lasting up to 2 years. We agreed to a trial of Ozempic. She was prescribed Ozempic. She was given swetha moreno on the injector. We reviewed her it video together of the injector. She was started 0.2 mg once a week. She will follow-up in 4 weeks. Spent 20 minutes face-to-fa ce. More than 50% was counseling . [id number] Geoffrey Mcclendon MD [place] [address],[place] [address] 10/31/2022 16:04:12 11/01/2022 14:26:36 Obesity [id number] E66.9 Prediabetes 045085120 R7 3.03 Patient maintained her weight during the holidays. We consider that success. She started Ozempic on the lowest dose. We agreed to increase to the 0.5 mg per week. Patient has been taking phentermin e along with the Ozempic. She tolerated it well. We agreed to continue the combinatio n therapy. She is taking now 30 of phentermin e. Her exercise is limited. She has a questionab le diet. We will look to improved results after this month. Spent over 20 minutes face-to-fa ce. More than 50% was counseling . Talked about alcohol. [id number] Geoffrey Mcclendon MD [place] [address],[place] [address] 11/28/2022 16:08:34 11/28/2022 17:45:44 Prediabetes [id number] R73.03 She started Ozempic on the lowest dose. We increased to the 0.5 mg per week. Patient has been taking phentermin e along with the Ozempic. She tolerated it well. We agreed to continue the combinatio n therapy. She is taking now 30 of phentermin e. Her exercise is limited. She has a questionab le diet. We will look to improved results after this month. Spent over 20 minutes face-to-fa ce. More than 50% was counseling . Talked about alcohol. Continues to lose weight. Lost almost 50 lb now. Follow-up in 4 weeks. Continue Ozempic 0.5 [id number] Geoffrey Mcclendon MD [place] [address],[place] [address] 12/26/2022 14:12:07 12/26/2022 14:55:51 Obesity [id number] E66.9 This patient is a 47-year-ol d female presents for weight management . She continues to lose weight slowly. She is currently taking wegovy. she is going to move up to 1 mg weekly. She is tolerating it well. She is unable to exercise due to her back. She feels like she is managing her diet well. She is sticking to about 1700 calories a day. She recently had some Perthes that were celebrated and this was a setback for her little bit. We spent 20 minutes face-to-fa ce. More than 50% was counseling . She will return in 1 month. We prescribed the 1 mg wegovy [id number] Geoffrey Mcclendon MD [place] [address],[place] [address] 02/13/2023 10:26:09 02/13/2023 12:04:09 Obesity 766413884 E66.9 Prediabetes [id number] R7 3.03 this patient is a 48-year-ol d female who presents weight management follow-up. She continues to lose weight after 8 months at a good rate. She has lost over 50 lb at this time. She is using both the GLP 1 agonists and phentermin e at this time. She continues to be more active. She has a very modified diet the she is satisfied with and is comfortabl e . we spent over 20 minutes face-to-fa ce. More than 50% was counseling . she will follow-up in 4 weeks. [id number] Geoffrey Mcclendon MD [place] [address],[place] [address] 03/24/2023 09:52:23 03/26/2023 10:59:02 Obesity 306773808 E66.9 This patient is a 48 y/o who presents for follow up on weight management .. physical therapy for back pain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
[2025-02-07 12:21] LABS: BEDSIDEPREGUCG Negative (Negative)
[2025-02-07 12:25] LABS: Basophils Percent Auto 0.4 % (0.2-1.2); Eosinophils Absolute Auto 0.1 K/mm3 (0-0.3); Eosinophils Percent Auto 0.6 % (0-4.4); Hemoglobin 13.7 g/dL (12.0-15.0); Immature Granulocyte Absolute 0.05 K/mm3 (0.00-0.031); Immature Granulocyte Percent A 0.6 % (0-0.5); Lymphocytes Absolute Auto 2.25 K/mm3 (0.9-3.2); Lymphocytes Percent Auto 28.8 % (18.3-44.2); Mean Corpuscular HGB Conc 33.4 g/dl (32-36); Mean Corpuscular Hemoglobin 33.3 pg (26-34); Mean Corpuscular Volume 99.8 fl (80-100); Mean Platelet Volume 10.3 fl (7.4-10.4); Monocytes Absolute Auto 0.4 K/mm3 (0.1-0.6); Monocytes Percent Auto 5.1 % (2.6-8.5); Neutrophils Percent Auto 64.5 % (45.5-73.1); Platelet Count Result 235 k/mm3 (150-375); Red Blood Count 4.11 M/mm3 (4.2-5.4); Red Cell Distribution Width 11.4 % (11.5-14.5); White Blood Count 7.8 K/mm3 (4.5-10.0)
[2025-02-07 12:36] LABS: Alanine Aminotransferase 68 U/L (6-35); Albumin Level 4.3 g/dL (3.5-5.1); Alkaline Phosphatase 64 U/L (38-126); Anion Gap 10 mmol/L (4-12); Aspartate Amino Transferase 29 U/L (14-36); Bilirubin,Total 0.4 mg/dL (0.2-1.3); Blood Urea Nitrogen 10 mg/dL (7-17); Calcium 9.2 mg/dL (8.4-10.2); Carbon Dioxide 27 mmol/L (22-30); Chloride 103 mmol/L (98-107); Estimated CRCL calculation 86 ml/min; Estimated Glomerular Filt Rate > 60; Glucose 99 mg/dL (65-110); Lipase 236 U/L (23-300); Potassium 3.9 mmol/L (3.4-5.0); Sodium 140 mmol/L (137-145)
--- OUTSIDE RECORDS SUMMARY | 2025-02-07 12:36 | XMS_ITS | Clinical Summary ---
Author Organization [facility] Address [address] [place] [address] Care Team Providers Care Steamfitter Apprentice Name Role Phone Rodo Garza MD Primary Care Provider [phone] Source Comments [facility],non-owned Affiliates and Associated Physician Practices is amultiple site organization consisting of ambulatory clinics and hospital sitesin [place], [place], [place] and [place]. This disclosure is being madepursuant to the Care Everywhere program and may not contain all information available regarding this patient. Last updated 18.[facility] Allergies No known active allergies Medications * [...] - 01/12/2025 11:59 PM CDT Hospital Encounter [facility] [address] [place] [address] Liza Doshi MD Discharge Disposition: Home or Self Care 01/12/2025 11:14 AM CDT Hospital Encounter [facility] [address] [place] [address] Liza Doshi MD Discharge Disposition: Home or Self Care 01/12/2025 10:50 AM CDT Office Visit [facility] [address] [place] [address] Liza Doshi MD Greater trochanteric bursitis of right hip (Primary Dx); Trochanteric bursitis of both hips 01/12/2025 Orders Only [facility] [address] [place] [address], [place] [address] Liza Doshi MD Trochanteric bursitis of both hips 01/12/2025 Travel 12/29/2024 Orders Only [facility] [address] [place] [address], [place] [address] Liza Doshi MD Bilateral hip [...] Visit [facility] [address] [place] [address] Liza Doshi MD [address] [facility] [address] [place] [address] Health Maintenance Due Date Last Done Comments [...] nal Result from Last 3 Months Insurance [employer] Care Teams Steamfitter Apprentice Relationship Specialty Start Date End Date Rodo Garza MD [facility] [place] [address] PCP - General Family Medicine 07/17/18
--- OUTSIDE RECORDS SUMMARY | 2025-02-07 12:36 | XMS_ITS | Referral Summary ---
Author Organization [facility] Address [address] [place] [address] Care Team Providers Care Postal Support Employee Name Role Phone Simón Jorgensen MD Primary Care Provider [phone] Allergies No known active allergies Medications docusate [...] (08/20/2019): Added automatically from request for surgery [id number] Carpal tunnel syndrome on right 08/20/2019 Overview (08/20/2019): Added automatically from request for surgery [id number] De Quervain's tenosynovitis 08/28/2018 Overview (08/28/2018): Added automatically from request for surgery [id number] Cubital tunnel syndrome on left 08/28/2018 Overview (08/28/2018): Added automatically from request for surgery [id number] Carpal tunnel syndrome of left wrist 08/28/2018 Overview (08/28/2018): Added automatically from request for surgery [id number] 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 Overview (08/28/2018): Added automatically from request for surgery [id number] Constipation 04/07/2018 Thrombosed external hemorrhoids 04/07/2018 Piles [...] on file Legal Sex Female 2:09 AM APPOINTMENT COORDINATOR Gender Identity Not on file Sexual Orientation Not on file Last Filed Vital Signs Vital Sign Reading Time Taken Comments Blood Pressure 130/85 09/01/2020 10:18 AM APPOINTMENT COORDINATOR Pulse 65 09/01/2020 10:18 AM APPOINTMENT COORDINATOR Temperature 36.4 C (97.5 F) 09/01/2020 10:18 AM APPOINTMENT COORDINATOR Respiratory Rate 18 09/09/2019 10:18 AM APPOINTMENT COORDINATOR Oxygen Saturation 97% 09/09/2019 10:18 AM APPOINTMENT COORDINATOR Inhaled Oxygen Concentration - - Weight 112 kg (247 lb) 09/01/2020 10:18 AM APPOINTMENT COORDINATOR Height 165.1 cm (5' 5 ) 09/01/2020 10:18 AM APPOINTMENT COORDINATOR Body Mass Index 41.1 09/01/2020 10:18 AM APPOINTMENT COORDINATOR Plan of Treatment Not on file Procedures Procedure Name Priority Date/Time Associated Diagnosis Comments HEMOGLOBIN A1C Routine 07/24/2017 12:35 PM CDT Morbid obesity (HCC) SERUM LIPID PANEL Routine 12/03/2012 11: 36 AM APPOINTMENT COORDINATOR from Last 3 Months or Most Recently Relevant to Health Maintenance Results * Hemoglobin A1c (07/24/2017 12:35 PM CDT) Hgb A1C 5.4 4.0 - 6.0 % AMANDA SIERRA Estimated Average Glucose 108 mg/dL AMANDA [facility] Comment: The ADA recommends reporting an estimated Average Glucose (eAG) with all Hemoglobin A1c results using the equation derived from a study of 507 normal and diabetic adults. Minority populations were underrepresented and children were not included. (Diabetes Care 31:4328-8077, 2008). The eAG is not equivalent to a fasting glucose. Blood specimen (specimen) 07/24/2017 12:35 PM CDT 07/24/2017 1:25 PM CDT Dee Dee FUNES LAB BLOOD ORDERABLES Final Result Performing Organization Address City/State/[facility] Co de Phone Number AMANDA SIERRA [facility] Department [place] [address] * (ABNORMAL) Serum lipid panel (12/03/2012 11:36 AM APPOINTMENT COORDINATOR) Cholesterol 191 0 - 200 mg/dl HISTORICAL [...] revised 2012. Serum 12/03/2012 11:3 6 AM APPOINTMENT COORDINATOR us Angelic Griffiths MD LAB BLOOD ORDERABLES F inal Result HISTORICAL RESULTS from Last 3 Months or Most Recently Relevant to Health Maintenance Insurance [facility] [employer] OPEN ACCESS Member Subscriber Plan / Payer (Ef fective 2018-Present) Name:Najma Orta Member ID:[id number] Relation to Subscriber:Self Name:NAJMA ORTA Subscriber ID:[id number] Payer ID:[id number] Type:[employer] HMO/PPO Address: [address] [employer] OPEN ACCESS Care Teams Postal Support Employee Relationship Specialty Start Date End Date Simón Jorgensen MD [address] [place] [address] PCP - General Family Medicine 08/18/20
--- OUTSIDE RECORDS SUMMARY | 2025-02-07 12:36 | XMS_ITS | Clinical Summary ---
Author Organization [facility] Address [address] [place] [address] Care Team Providers Care Infection Prevention Coordinator Name Role Phone Simón Jorgensen MD Primary Care Provider [phone] Allergies No known active allergies Medications ondansetron [...] on file Legal Sex Female 9:43 PM CASEWORKER Gender Identity Not on file Sexual Orientation Not on file Last Filed Vital Signs Vital Sign Reading Time Taken Comments Blood Pressure 133/89 12/27/2022 9:27 AM CASEWORKER Pulse 83 12/27/2022 9:27 AM CASEWORKER Temperature 36.7 C (98.1 F) 12/27/2022 8:29 AM CASEWORKER Respiratory Rate 16 12/27/2022 9:27 AM CASEWORKER Oxygen Saturation 99% 12/27/2022 9:27 AM CASEWORKER Inhaled Oxygen Concentration - - Weight 101.2 kg (223 lb) 12/27/2022 8:30 AM CASEWORKER Height 165.1 cm (5' 5 ) 12/27/2022 8:29 AM CASEWORKER Body Mass Index 37.11 12/27/2022 8:29 AM CASEWORKER Plan of Treatment Health Maintenance Due Date [...] patient's age to complete this topic Insurance [employer] [facility] [employer] [facility] Care Teams Infection Prevention Coordinator Relationship Specialty Start Date End Date Simón Jorgensen MD [address] [place] [address] PCP - General FAMILY MEDICINE SPORTS MEDICINE 04/15/21
--- OUTSIDE RECORDS SUMMARY | 2025-02-07 12:36 | XMS_ITS | Clinical Summary ---
Author Organization [facility] Address [address] [place] [address] Care Team Providers Care Chief Nuclear Medicine Technologist Name Role Phone Simón Jorgensen MD Primary Care Provider [phone] Allergies No known active allergies Medications docusate [...] (08/20/2019): Added automatically from request for surgery [id number] Carpal tunnel syndrome on right 08/20/2019 Overview (08/20/2019): Added automatically from request for surgery [id number] De Quervain's tenosynovitis 08/28/2018 Overview (08/28/2018): Added automatically from request for surgery [id number] Cubital tunnel syndrome on left 08/28/2018 Overview (08/28/2018): Added automatically from request for surgery [id number] Carpal tunnel syndrome of left wrist 08/28/2018 Overview (08/28/2018): Added automatically from request for surgery [id number] 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 Overview (08/28/2018): Added automatically from request for surgery [id number] Constipation 04/07/2018 Thrombosed external hemorrhoids 04/07/2018 Piles [...] on file Legal Sex Female 2:09 AM ANIMAL NURSE Gender Identity Not on file Sexual Orientation Not on file Obstetrics History Last Filed Vital Signs Vital Sign Reading Time Taken Comments Blood Pressure 130/85 09/01/2020 10:18 AM ANIMAL NURSE Pulse 65 09/01/2020 10:18 AM ANIMAL NURSE Temperature 36.4 C (97.5 F) 09/01/2020 10:18 AM ANIMAL NURSE Respiratory Rate 18 09/09/2019 10:18 AM ANIMAL NURSE Oxygen Saturation 97% 09/09/2019 10:18 AM ANIMAL NURSE Inhaled Oxygen Concentration - - Weight 112 kg (247 lb) 09/01/2020 10:18 AM ANIMAL NURSE Height 165.1 cm (5' 5 ) 09/01/2020 10:18 AM ANIMAL NURSE Body Mass Index 41.1 09/01/2020 10:18 AM ANIMAL NURSE Plan of Treatment Health Maintenance Due Date [...] LIPID PANEL Routine 12/03/2012 11: 36 AM ANIMAL NURSE from Last 3 Months or Most Recently Relevant to Health Maintenance Results * Hemoglobin A1c (07/24/2017 12:35 PM CDT) Hgb A1C 5.4 4.0 - 6.0 % AMANDA SIERRA Estimated Average Glucose 108 mg/dL [facility] Comment: The ADA recommends reporting an estimated Average Glucose (eAG) with all Hemoglobin A1c results using the equation derived from a study of 507 normal and diabetic adults. Minority populations were underrepresented and children were not included. (Diabetes Care 31:1085-3394, 2008). The eAG is not equivalent to a fasting glucose. Blood specimen (specimen) 07/24/2017 12:35 PM CDT 07/24/2017 1:25 PM CDT us Dee Dee FUNES LAB BLOOD ORDERABLES Final Result [facility] Department [place] [address] * (ABNORMAL) Serum lipid panel (12/03/2012 11:36 AM ANIMAL NURSE) Cholesterol 191 0 - 200 mg/dl HISTORICAL [...] revised 2012. Serum 12/03/2012 11:3 6 AM ANIMAL NURSE Angelic Griffiths MD LAB BLOOD ORDERABLES F inal Result HISTORICAL RESULTS from Last 3 Months or Most Recently Relevant to Health Maintenance Insurance [employer] [facility] Member Subscriber Plan / Payer (Ef fective 2018-Present) Name:Najma Orta Member ID:[id number] Relation to Subscriber:Self Name:NAJMA ORTA Subscriber ID:[id number] Payer ID:[id number] Type:[employer] HMO/PPO [address] [facility] [facility]ESS Care Teams Chief Nuclear Medicine Technologist Relationship Specialty Start Date End Date Simón Jorgensen MD [address] [place] [address] PCP - General Family Medicine 08/18/20
--- OUTSIDE RECORDS SUMMARY | 2025-02-07 12:36 | XMS_ITS ---
Author Organization Unknown Medications Medication Instructions Effective Dates (start - stop) Status 0.75 ML semaglutide 3.2 MG/M L Auto-Injector [[employer]] - Completed - - Compl eted - - Compl eted phentermine hydrochloride 37 .5 MG Oral Capsule - Completed 0.75 ML semaglutide 3.2 MG/M L Auto-Injector [ID.me] - Completed - - Compl eted loteprednol etabonate 5 MG/M L Ophthalmic Suspension - Completed - - Compl eted atorvastatin 20 MG Oral Tablet 2023-07-02 T00:00:00Z - Completed topiramate 50 MG Oral Tablet [id number] 0:00:00Z - Completed dexamethasone 0.001 MG/MG / [...] 0.75 ML semaglutide 3.2 MG/M L Auto-Injector [[employer]] - Completed amoxicillin 875 MG / clavula tristan 125 MG Oral Tablet - Completed 0.75 ML semaglutide 3.2 MG/M L Auto-Injector [[employer]] - Completed sertraline 100 MG Oral Tablet 2023-07-02 00:00:00Z - Completed phentermine hydrochloride 37 .5 MG Oral Capsule - Completed phentermine hydrochloride 37 .5 MG Oral Capsule - Completed - - Compl eted - - Compl eted topiramate 50 MG Oral Tablet [id number] 0:00:00Z - Completed 0.75 ML semaglutide 3.2 MG/M L Auto-Injector [ID.me] - Completed topiramate 50 MG Oral Tablet [id number] 0:00:00Z - Completed sertraline 100 MG Oral [...] 0.75 ML semaglutide 3.2 MG/M L Auto-Injector [ID.me] - Completed phentermine hydrochloride 37 .5 MG Oral Capsule - Completed 0.75 ML semaglutide 3.2 MG/M L Auto-Injector [ID.me] - Completed amoxicillin 500 MG Oral Capsule 2023-10-23 7T00:00:00Z - Completed amoxicillin 875 MG / clavula tristan 125 MG Oral Tablet - Completed hydroxyzine hydrochloride 25 MG Oral Tablet - Completed 0.75 ML semaglutide 3.2 MG/M L Auto-Injector [ID.me] - Completed 0.75 ML semaglutide 3.2 MG/M L Auto-Injector [ID.me] - Completed 0.75 ML semaglutide 3.2 MG/M L Auto-Injector [ID.me] - Completed topiramate 50 MG Oral Tablet [id number] 0:00:00Z - Completed atorvastatin 20 MG Oral Tablet 2024-01-16 T00:00:00Z - Completed Patient Care team information Name Category Status Period Participants - - Proposed period not known -
--- OUTSIDE RECORDS SUMMARY | 2025-02-07 12:36 | XMS_ITS | Continuity of Care Document ---
Author Organization [facility] Address [address] [place] [address] [address] [place] [address] Phone Care Team Providers Care Dulser Name Role Phone Stevan PT, DPT, Lorena Unavailable Unavaila ble Procedures Procedure Date Therapeutic Activities Neuromuscular Re-Ed Therapeutic Exercise Manual Therapy Therapeutic Activities Neuromuscular Re-Ed Therapeutic Exercise Manual Therapy Therapeutic Activities Neuromuscular Re-Ed Therapeutic Exercise Manual [...] Diagnoses Date Provider Providers Copied on Encounter [facility], [id number], tel:[phone] [place] No Information Apr-1 4-202 5 Calles Lorena. . [facility] [facility] [address], [place], [id number], tel:[phone] [place] No Information Apr-0 9-202 5 Calles Lorena. . Referring Provider: Raquel Souza1 [address] [facility] [address], [place], [address]. tel:[phone] [facility] [address] [facility], [place], [place], [id number], tel:[phone] [place] No Information Apr-0 4-202 5 Calles Lorena. . Referring Provider: Raquel Souza1 [address], [place], [address]. tel:[phone] [facility] [facility] [address], [place], [place], [id number], tel:[phone] [place] No Information Apr-0 2-202 5 Calles Lorena. . Referring Provider: Liza Doshi, [address], [place], [address]. tel:[phone] [address], [place], [place], [id number], [place] tel:[phone] [place] No Information Mar-2 8-202 5 Calles Lorena. . Referring Provider: Liza Doshi, [address], [place], [address]. tel:[phone] [address], [place], [place], [id number], [place] tel:[phone] [place] No Information Oct-2 1-201 4 Muehl Keyshawn. [address] [place] [address], [address], [place], [place], [facility], [place]. tel:[phone] [facility] [address] [place] [address], [place], [place], [id number], [place] tel:[phone] [place] No Information Jul-1 7-201 4 Muehl Keyshawn. [address] [place] [address], [address], [place], [place], [facility], [place]. tel:[phone] [facility] [address] [place], [place] [address], [place], [place], [id number], [place] tel:[phone] [place] Pain in joint involving lower leg Oct-1 0-201 4 Muehl Keyshawn. [address] [place] [address], [address], [place], [place], [facility], [place]. tel:[phone] [facility] [address] [place], [place] [address], [place], [place], [id number], [place] tel:[phone] [place] No Information Mar-2 6-201 3 Keyona Jed. [address] [place] [address], [address], [place], [place], [facility], [place]. tel:[phone] Referring Provider: Angelic Griffiths, [facility] [address], [place], [address]. tel:[phone], [id number], tel:[phone] [place] No Information Mar-2 2-201 3 Keyona Jed. [address] [place] [address], [address], [place], [facility], . tel: [phone] Referring Provider: Angelic Griffiths, [facility] [address], [place], [address]. tel:[phone], [place], [place], [id number], tel:[phone] [place] No Information Mar-2 0-201 3 Keyona Jed. [address] [place] [address], [address], [place], [facility], . tel: [phone] Referring Provider: Angelic Griffiths, [address] [place] [address] [address], [address]. tel:[phone], [id number], tel:[phone] [place] No Information Mar-1 5-201 3 Keyona Jed. [address] [place] [address], [address], [place], [facility], . tel: [phone] Referring Provider: Angelic Griffiths, [address] [place] [address] [address], [place], [address]. tel:[phone], [id number], tel:[phone] [place] No Information Mar-0 7-201 3 Keyona Jed. [address] [place] [address], [facility] [address], [place], [facility], . tel:[phone] Referring Provider: Angelic Griffiths, [facility] [address], [address]. tel:[phone], [id number], [place] tel:[phone] Brenda LumbagoRadicu litis, Thoracic or Lumbar Dec-0 3 Keyona Adkins. [address] [facility], [address], [place], [address], [place]. tel: [phone] Referring Provider: Angelic Griffiths, [address] [facility] [address], [place], [address]. tel:[phone] Family History Family Member Type Diagnosis Age At Onset No Information Payers Payer name Insurance type Covered green party ID Authorsanthosh greene(s) Campaign Monitor CI [id number] Social History Type Description Quantity Date Captured [...]
[2025-02-07 12:37] LABS: Add Urine Microscopic? YES; Appearance Urine Cloudy (Clear); Bacteria Urine 2+ /hpf; Bilirubin Urine Negative (Negative); Blood Urine Negative (Negative); Color Urine Yellow (Yellow); Glucose Urine UA Negative (Negative); Ketones Urine Negative (Negative); Leukocyte Esterase Ur Negative LEU/UL (Negative); Mucus Urine Present /lpf; Need Manual Microscopic Reviewed; Nitrate Urine Negative (Negative); Non Pathogenic Casts 0-2; Protein Urine Negative (Negative); RBC Urine 0-2 /hpf (0-2); Specific Grav Ur 1.016 (1.001-1.035); Squamous Epithelial Cell Urine Many /hpf (Few); Urobilinogen Urine 0.2 mg/dL (<2.0); WBC Urine 21-50 /hpf (0-3)
[2025-02-07] MEDS: SODIUM CHLORIDE 0.9% IV 1,000 ML 999 ML IV CONT (12:48)
[2025-02-07] MEDS: diphenhydrAMINE HCl INJ 50 MG/ML VIAL 25 MG IV PUSH (12:48)
[2025-02-07] MEDS: PROCHLORPERAZINE EDISYLATE 10 MG/2 ML VIAL IV PUSH (12:48)
--- NOTE | 2025-02-07 14:20 | ED_ITS ---
HPI - General Adult General Chief complaint: Nausea/Vomiting/Diarrhea Stated complaint: Nausea, vomiting since Sunday Time Seen by Provider: 02/07/25 12:19 History of Present Illness HPI narrative: Patient is a 50-year-old female who presents emergency department with chief complaint of nausea vomiting. Patient reports her symptoms started about 4 days ago reports that she talked to her primary care provider who wrote her Zofran dissolvable tablets the patient reports that she has been taking Zofran and has still been feeling nauseated and has still had some vomiting. The patient reports no diarrhea does report that she has some pain in the right lower quadrant Related Data Home Medications ?Medication ?Instructions ?Recorded ?Confirmed ?Last Taken ?Type furosemide 40 mg tablet 40 mg PO QAM 07/01/21 11/17/23 09/16/21 History multivitamin 1 tablet PO DAILY 07/01/21 11/17/23 09/16/21 History nebivolol 10 mg tablet (Bystolic) 10 mg PO QAM 07/01/21 11/17/23 09/20/21 04:30 History cholecalciferol (vitamin D3) 25 25 mcg PO DAILY 09/07/21 11/17/23 09/16/21 History mcg (1,000 unit) chewable tablet (Vitamin D3) topiramate 50 mg tablet 50 tablet PO DAILY 05/05/22 11/17/23 Unknown History hydroxyzine HCl 25 mg tablet 25 mg PO DAILY 11/17/23 11/17/23 Unknown History semaglutide (weight loss) 2.4 See Rx Instructions .Route .COMPLEX 11/17/23 11/17/23 Unknown History mg/0.75 mL subcutaneous pen injector (Wegovy) Allergies Allergy/AdvReac Type Severity Reaction Status Date / Time No Known Allergies Allergy Mild Verified 02/07/25 11:59 Review of Systems 2 Review of Systems: A 10 system review of systems was completed on the patient and is negative except for what is stated in the HPI. Nursing and ancillary documentation was reviewed. PMFSH Past Medical History Medical History Depression Hypertension Hyperlipidemia Surgical History Surgical History History of carpal tunnel surgery Social History Social History Smoking status: Never smoker Alcohol intake: current Alcohol use details: 2/MONTH Substance use: never Substance use type: does not use Living arrangements: with family Spiritual care concerns: No Exam 2 Narrative: GENERAL: Well-appearing, well-nourished, and in no acute distress. HEAD: Normocephalic, atraumatic. EYES: PERRLA and EOMI. ENT: Nares clear, no rhinorrhea or epistaxis. Mucous membranes moist. NECK: Supple. CHEST: Clear to auscultation. No respiratory distress. HEART: Regular rate and rhythm. No murmur heard. Normal peripheral pulses. ABDOMEN: Soft, tenderness to palpation right lower quadrant, nondistended, normal active bowel sounds. EXTREMITIES: Normal range of motion. No edema. SKIN: Warm, dry, no rash. NEURO: No focal deficits. Alert and oriented x3. PSYCH: Normal mood and affect. Course Vital Signs Vital signs: Vital Signs Temperature 36.6 C 02/07/25 12:01 Pulse Rate 66 02/07/25 12:01 Respiratory Rate 16 02/07/25 12:01 Blood Pressure 148/82 H 02/07/25 12:01 Pulse Oximetry 98 02/07/25 12:01 Temperature 36.6 C 02/07/25 12:01 Pulse Rate 66 02/07/25 12:01 Respiratory Rate 16 02/07/25 12:01 Blood Pressure 148/82 H 02/07/25 12:01 Pulse Oximetry 98 02/07/25 12:01 Medical Decision Making Vital Signs Vital Signs: Vital Signs Temperature 36.6 C 02/07/25 12:01 Pulse Rate 66 02/07/25 12:01 Respiratory Rate 16 02/07/25 12:01 Blood Pressure 148/82 H 02/07/25 12:01 Pulse Oximetry 98 02/07/25 12:01 Temperature 36.6 C 02/07/25 12:01 Pulse Rate 66 02/07/25 12:01 Respiratory Rate 16 02/07/25 12:01 Blood Pressure 148/82 H 02/07/25 12:01 Pulse Oximetry 98 02/07/25 12:01 Lab Data 02/07/25 12:16 02/07/25 12:16 Labs: Lab Results 02/07/25 02/07/25 Range/Units 12:16 12:17 WBC 7.8 (4.5-10.0) K/mm3 RBC 4.11 L (4.2-5.4) M/mm3 Hgb 13.7 (12.0-15.0) g/dL Hct 41.0 (37.0-47.0) % MCV 99.8 (80-100) fl MCH 33.3 (26-34) pg MCHC 33.4 (32-36) g/dl RDW 11.4 L (11.5-14.5) % Plt Count 235 (150-375) k/mm3 MPV 10.3 (7.4-10.4) fl Immature Gran % (Auto) 0.6 H (0-0.5) % Neut % (Auto) 64.5 (45.5-73.1) % Lymph % (Auto) 28.8 (18.3-44.2) % [place] % (Auto) 5.1 (2.6-8.5) % Eos % (Auto) 0.6 (0-4.4) % Baso % (Auto) 0.4 (0.2-1.2) % Lymph # (Auto) 2.25 (0.9-3.2) K/mm3 [place] # (Auto) 0.4 (0.1-0.6) K/mm3 Eos # (Auto) 0.1 (0-0.3) K/mm3 Baso # (Auto) 0.0 (0.0-0.1) K/mm3 Abs Immat Gran (auto) 0.05 H (0.00-0.031) K/mm3 Absolute Neuts (auto) 5.0 (1.3-6.7) K/mm3 Absolute Nucleated RBC 0.000 (0.0-0.012) K/mm3 Nucleated RBC % 0.0 (0.0-0.2) % Sodium 140 (137-145) mmol/L Potassium 3.9 (3.4-5.0) mmol/L Chloride 103 (98-107) mmol/L Carbon Dioxide 27 (22-30) mmol/L Anion Gap 10 (4-12) mmol/L BUN 10 D (7-17) mg/dL Creatinine 0.80 (0.7-1.0) mg/dL Estim Creat Clear Calc 86 ml/min Estimated GFR > 60 (59 - ) Glucose 99 (65-110) mg/dL Calcium 9.2 (8.4-10.2) mg/dL Total Bilirubin 0.4 (0.2-1.3) mg/dL AST 29 (14-36) U/L ALT 68 H (6-35) U/L Alkaline Phosphatase 64 (38-126) U/L Total Protein 7.0 (6.3-8.2) g/dL Albumin 4.3 (3.5-5.1) g/dL Lipase 236 (23-300) U/L Urine Color Yellow (Yellow) Urine Appearance Cloudy H (Clear) Urine pH 5.0 (5.0-9.0) Ur Specific [place] 1.016 (1.001-1.035) Urine Protein Negative (Negative) mg/dL Urine Glucose (UA) Negative (Negative) mg/dL Urine Ketones Negative (Negative) mg/dL Ur Blood (Man) Negative (Negative) Urine Nitrate Negative (Negative) Urine Bilirubin Negative (Negative) Urine Urobilinogen 0.2 (<2.0) mg/dL Add Ur Microanalysis Reviewed Leukocyte Esterase Rfl Negative (Negative) ORLY/UL Urine RBC 0-2 (0-2) /hpf Urine WBC 21-50 H (0-3) /hpf Ur Squamous Epith Cells Many H (Few) /hpf Urine Bacteria 2+ H /hpf Urine Casts 0-2 Urine Mucus Present /lpf POC Urine HCG, Qual Negative (Negative) Discharge Plan Discharge Clinical Impression: Abdominal pain, Nausea and vomiting, UTI (urinary tract infection) Patient Disposition: Home Condition: Stable Instructions: Antibiotic Form, Acute Nausea and Vomiting (ED), Abdominal Pain (ED) Patient Language: Sudanese Prescriptions: New promethazine 25 mg suppository 25 mg RECTAL Q6H PRN (Reason: nausea and vomiting) Qty: 12 0RF cephalexin 500 mg capsule 500 mg PO Q12H 7 Days Qty: 14 0RF No Action topiramate 50 mg tablet 50 tablet PO DAILY hydroxyzine HCl 25 mg tablet 25 mg PO DAILY Wegovy 2.4 mg/0.75 mL pen injector See Rx Instructions .ROUTE .COMPLEX Rx Instructions: Rx amoxicillin 500 mg capsule 500 mg PO Q12H Qty: 20 0RF multivitamin Tablet 1 tablet PO DAILY furosemide 40 mg tablet 40 mg PO QAM nebivolol [Bystolic] 10 mg tablet 10 mg PO QAM cholecalciferol (vitamin D3) [Vitamin D3] 25 mcg (1,000 unit) Tablet,Chewable 25 mcg PO DAILY Follow-up/Referrals: Kayla,Rodo Mccullough MD [Primary Care Provider] - Time of Disposition: 14:44
[2025-02-07 14:52] VITALS: BP 122/79; PULSE 69; RESP 17; O2SAT 100
== END 2025-02-07 14:53 | disposition home or self-care (01) ==
PROVIDERS: Emergency Medicine; Emergency Provider Emergency Medicine; PCP Family Medicine
DX: R11.2 Nausea with vomiting, unspecified (principal); N39.0 Urinary tract infection, site not specified; I10 Essential (primary) hypertension; E78.5 Hyperlipidemia, unspecified; F32.A Depression, unspecified
CPT/HCPCS: 36415; 74177; 80053; 81001; 81025; 83690; 85025; 96361; 96374; 96375; 99284; J0780; J1200; J7030; Q9967